=== PATIENT | female | born 1960 | race Caucasian/White ===

== ENCOUNTER 2017-02-22 11:10 | Emergency (ER) | payer OTHER ==
[2017-02-22] MEDS ORDERED: IPRATROPIUM-ALBUTEROL 3 ML NEB INHALATION STA (11:37)
--- NOTE | 2017-02-22 11:39 | ED ---
General Adult HPI - General Chief complaint: Upper Respiratory Infection Stated complaint: Cough Time Seen by Provider: 02/22/17 11:23 Source: patient, RN notes reviewed Mode of arrival: ambulatory Limitations: no limitations - History of Present Illness Initial comments: Patient is a pleasant 56-year-old female presenting to the emergency department with cough and congestion. Symptoms have been present 7 or 8 days. Symptoms seem somewhat worse today. Patient does have some back discomfort with cough only. No difficulty breathing. Patient has congestion in her chest and sinuses. Patient does have sinus pressure and right ear discomfort. Cough has been productive however patient has not looked at color of sputum. No fever. - Related Data Home Medications Medication Instructions Recorded Confirmed Levothyroxine Sodium [Synthroid] 75 mcg PO DAILY 07/17/15 02/22/17 traMADol HCl [Ultram] 50 mg PO QID PRN 07/17/15 02/22/17 Lisinopril [Zestril] 10 mg PO DAILY 11/13/16 02/22/17 guaiFENesin [Mucinex] 600 mg PO BID PRN 02/22/17 02/22/17 Previous Rx's Medication Instructions Recorded Albuterol Inhaler [Ventolin Hfa 2 puff INHALATION Q4HR PRN #1 02/22/17 Inhaler] inhaler Azithromycin [Zithromax Z-pack] 250 mg PO DIRECTED #6 tab 02/22/17 Allergies Allergy/AdvReac Type Severity Reaction Status Date / Time adhesive tape Allergy blisters Verified 02/22/17 11:26 codeine Allergy hives, SOB Verified 02/22/17 11:26 Review of Systems ROS Statement: Those systems with pertinent positive or pertinent negative responses have been documented in the HPI. ROS Other: All systems not noted in ROS Statement are negative. Constitutional: Denies: fever, chills Eyes: Denies: eye pain ENT: Denies: ear pain Respiratory: Reports: cough. Denies: dyspnea Cardiovascular: Denies: chest pain Endocrine: Denies: fatigue Gastrointestinal: Denies: abdominal pain Genitourinary: Denies: dysuria Musculoskeletal: Denies: arthralgia Skin: Denies: rash Neurological: Denies: weakness Past Medical History Past Medical History: GERD/Reflux, Hyperlipidemia, Hypertension, Thyroid Disorder Additional Past Medical History / Comment(s): migraines, burning and abdominal pain, arthritis in spine, "anti-coagulant lupus", "carrier of hepatitis C" STATES FRACTURE IN THORAX AREA History of Any Multi-Drug Resistant Organisms: None Reported Past Surgical History: Back Surgery, Cholecystectomy, Orthopedic Surgery, Tonsillectomy Additional Past Surgical History / Comment(s): cervical and lumbar surgery, plate in neck, tram-flap surgery, left knee arthroscopy, EGD, COLONOSCOPY, left carpal tunnel sugery, left arm surgery (elbow) Past Anesthesia/Blood Transfusion Reactions: No Reported Reaction Past Psychological History: No Psychological Hx Reported Smoking Status: Current every day smoker Past Alcohol Use History: None Reported Past Drug Use History: None Reported - Past Family History Mother Family Medical History: Cancer Additional Family Medical History / Comment(s): leukemia Daughter(s) Family Medical History: Cancer, Seizure Disorder Additional Family Medical History / Comment(s): breast General Exam Limitations: no limitations General appearance: alert, in no apparent distress Head exam: Present: atraumatic Eye exam: Present: normal appearance, PERRL ENT exam: Present: normal oropharynx Neck exam: Present: normal inspection Respiratory exam: Present: wheezes Cardiovascular Exam: Present: regular rate, normal rhythm Extremities exam: Present: normal inspection. Absent: pedal edema, calf tenderness Back exam: Present: normal inspection Neurological exam: Present: alert Psychiatric exam: Present: normal affect, normal mood Skin exam: Present: normal color Course Vital Signs 02/22/17 02/22/17 02/22/17 11:16 11:50 11:51 Temperature 97.9 F Pulse Rate 70 88 Respiratory 18 18 Rate Blood Pressure 164/85 O2 Sat by Pulse 96 Oximetry 02/22/17 12:00 Temperature Pulse Rate 84 Respiratory Rate Blood Pressure O2 Sat by Pulse Oximetry Medical Decision Making - Medical Decision Making Patient reexamined and feels much better following neurologic treatment. Patient updated. - Radiology Data Radiology results: image reviewed (Chest x-ray shows no acute process) Disposition Clinical Impression: Bronchitis, Sinusitis Disposition: HOME SELF-CARE Condition: Stable Instructions: Sinusitis (ED), Acute Bronchitis (ED) Additional Instructions: Please follow-up with primary care physician in the next couple of days for recheck. Return for difficulty breathing, fevers, worsening symptoms or other concerns. Prescriptions: Albuterol Inhaler [Ventolin Hfa Inhaler] 2 puff INHALATION Q4HR PRN #1 inhaler PRN Reason: Dyspnea Azithromycin [Zithromax Z-pack] 250 mg PO DIRECTED #6 tab Referrals: Felecia Curry DO [Primary Care Provider] - 1-2 days Time of Disposition: 12:38
--- NOTE | 2017-02-22 12:28 | XR ---
EXAMINATION TYPE: XR chest 2V DATE OF EXAM: 02/22/2017 COMPARISON: May 02, 2013 HISTORY: Shortness of breath TECHNIQUE: Frontal and lateral views of the chest are obtained. FINDINGS: Scattered senescent parenchymal changes noted. Hyperinflation compatible with COPD. No evidence for infiltrate. No evidence for atelectasis. Heart size is stable. Mediastinal structures are stable and grossly unremarkable. No evidence for hilar prominence. Degenerative changes dorsal spine. IMPRESSION: 1. No evidence for acute pulmonary disease.
[2017-02-22 12:57] VITALS: BP 144/67; PULSE 61; RESP 16; TEMP 98.3
== END 2017-02-22 12:56 | disposition home or self-care (01) ==
LOC: EC 11:10
DX: J40 Bronchitis, not specified as acute or chronic (principal); J32.9 Chronic sinusitis, unspecified; I10 Essential (primary) hypertension; E07.9 Disorder of thyroid, unspecified; F17.200 Nicotine dependence, unspecified, uncomplicated; Z86.19 Personal history of other infectious and parasitic diseases; Z79.899 Other long term (current) drug therapy; Z88.5 Allergy status to narcotic agent; Z91.048 Other nonmedicinal substance allergy status
CPT/HCPCS: 71020; 94640; 99283

== ENCOUNTER 2018-07-05 20:21 | Emergency (ER) | payer OTHER ==
[2018-07-05 20:33] VITALS: BP 152/83; PULSE 65; RESP 18; TEMP 98.7
[2018-07-05] MEDS ORDERED: MORPHINE SULFATE 4 MG/ML SYRINGE IM STA (20:51)
--- NOTE | 2018-07-05 21:15 | CT ---
EXAMINATION TYPE: CT brain shelia quintanilla DATE OF EXAM: 07/05/2018 COMPARISON: None HISTORY: Headache. Neck pain CT DLP: mGycm Automated exposure control for dose reduction was used. TECHNIQUE: CT scan of the head and cervical spine are performed without contrast. FINDINGS: Ventricles and sulci are within normal limits. There is no mass effect nor midline shift. There is no sign of intracranial hemorrhage. Calvarium is intact. The cervical vertebra have normal alignment. There is anterior fusion surgery from C4 to C7. Posterio r elements are intact. The skull base is intact. There is no evidence of a fracture. There is anterio r bridging osteophyte at C3-4. IMPRESSION: Previous spine surgery. No acute abnormality of the cervical spine. No fracture. Negative CT scan of the brain.
--- NOTE | 2018-07-05 21:19 | XR ---
EXAMINATION TYPE: XR Hip Bilateral and AP pelvis DATE OF EXAM: 07/05/2018 COMPARISON: NONE HISTORY: Fall. Hip pain TECHNIQUE: A single AP view of the pelvis is obtained. Two views of the right and left hip are obtain ed. FINDINGS: The pelvic ring is intact. Proximal femurs and hip joints are intact. Sacroiliac joints milton ear normal. There is no evidence of a fracture. Hip joint spaces appear normal. IMPRESSION: Negative pelvis and bilateral hip exam. No fracture.
--- NOTE | 2018-07-05 21:21 | XR ---
EXAMINATION TYPE: XR lumbar spine 2 or 3V DATE OF EXAM: 07/05/2018 COMPARISON: NONE HISTORY: Fall. Back pain TECHNIQUE: 3 views FINDINGS: Lumbar vertebra have normal alignment. Posterior elements are intact. There is disc prosthe sis at L5-S1. Sacroiliac joints are intact. There is laminectomy of L4 and L5. There is posterior fusion surgery in the lower lumbar spine at L4 L5 S1. IMPRESSION: Previous surgery. No fracture seen.
--- NOTE | 2018-07-05 21:42 | ED ---
General Adult HPI - General Chief complaint: Fall Stated complaint: Fall Back Pain Time Seen by Provider: 07/05/18 20:40 Source: patient, RN notes reviewed, old records reviewed Mode of arrival: EMS Limitations: no limitations - History of Present Illness Initial comments: 58-year-old female patient with no pertinent past medical history presents to ED after sustaining a fall at home. Patient reports that she was standing on a porch when she took a step forward and slipped and fell down approximately 4 steps. Patient fell backwards landing on her gluteus region as well as hitting the back of her head on the handrail. Patient denies any loss of consciousness. This fall occurred approximately 5 hours prior to presentation to ER. Patient denies any use of blood thinners. Patient denies any headache, change in vision, pain in neck. Patient primary complaint is low back pain, and right hip pain. Patient is ambulatory without difficulty. Patient denies any loss of bowel or bladder control, saddle anesthesia, new onset lower extremity weakness, IV drug use, fevers or chills. Denies other complaints. Systemic: Pt denies fatigue, myalgia, fever/chills, rash. Pt denies weakness, night sweats, weight loss. Neuro: Pt denies headache, visual disturbances, syncope or pre-syncope. HEENT: Pt denies ocular discharge or irritation, otalgia, rhinorrhea, pharyngitis or notable lymphadenopathy. Cardiopulmonary: Pt denies chest pain, SOB, heart palpitations, dyspnea on exertion. Abdominal/GI: Pt denies abdominal pain, n/v/d. : Pt denies dysuria, burning w/ urination, frequency/urgency. Denies new onset urinary or bowel incontinence. MSK: Pt denies myalgia, loss of strength or function in extremities. Neuro: Pt denies new onset weakness, paresthesias. - Related Data Home Medications Medication Instructions Recorded Confirmed Levothyroxine Sodium [Synthroid] 75 mcg PO DAILY 07/17/15 02/22/17 traMADol HCl [Ultram] 50 mg PO QID PRN 07/17/15 02/22/17 Lisinopril [Zestril] 10 mg PO DAILY 11/13/16 02/22/17 guaiFENesin [Mucinex] 600 mg PO BID PRN 11/26/17 11/26/17 Previous Rx's Medication Instructions Recorded Albuterol Inhaler [Ventolin Hfa 2 puff INHALATION Q4HR PRN #1 02/22/17 Inhaler] inhaler Azithromycin [Zithromax Z-pack] 250 mg PO DIRECTED #6 tab 02/22/17 predniSONE 50 mg PO DAILY #5 tab 07/05/18 Allergies Allergy/AdvReac Type Severity Reaction Status Date / Time adhesive tape Allergy blisters Verified 07/05/18 20:33 codeine Allergy hives, SOB Verified 07/05/18 20:33 Review of Systems ROS Statement: Those systems with pertinent positive or pertinent negative responses have been documented in the HPI. ROS Other: All systems not noted in ROS Statement are negative. Past Medical History Past Medical History: GERD/Reflux, Hyperlipidemia, Hypertension, Thyroid Disorder Additional Past Medical History / Comment(s): migraines, burning and abdominal pain, arthritis in spine, "anti-coagulant lupus", "carrier of hepatitis C" STATES FRACTURE IN THORAX AREA History of Any Multi-Drug Resistant Organisms: None Reported Past Surgical History: Back Surgery, Cholecystectomy, Orthopedic Surgery, Tonsillectomy Additional Past Surgical History / Comment(s): cervical and lumbar surgery, plate in neck, tram-flap surgery, left knee arthroscopy, EGD, COLONOSCOPY, left carpal tunnel sugery, left arm surgery (elbow) Past Anesthesia/Blood Transfusion Reactions: No Reported Reaction Past Psychological History: No Psychological Hx Reported Smoking Status: Current every day smoker Past Alcohol Use History: None Reported Past Drug Use History: None Reported - Past Family History Mother Family Medical History: Cancer Additional Family Medical History / Comment(s): leukemia Daughter(s) Family Medical History: Cancer, Seizure Disorder Additional Family Medical History / Comment(s): breast General Exam - General Exam Comments Initial Comments: Constitutional: NAD, AOX3, Pt has pleasant affect. HEENT: NC/AT, trachea midline, neck supple, no lymphadenopathy. Posterior pharynx non erythematous, without exudates. External ears appear normal, without discharge. Mucous membranes moist. Eyes PERRLA, EOM intact. There is no scleral icterus. No pallor noted. Cardiopulmonary: RRR, no murmurs, rubs or gallops, no JVD noted. Lungs CTAB in anterior and posterior duran. No peripheral edema. Abdominal exam: Abdomen soft and non-distended. Abdomen non-tender to palpation in all 4 quadrants. Bowel sounds active in LLQ. No hepatosplenomegaly. No ecchymosis Neuro: CN II-XII intact. No nuchal rigidity. No cervical spinal tenderness. MSK: 5 out of 5 strength quadriceps and psoas muscles. Mild amount of midline lumbar tenderness. No cervical thoracic lumbar tenderness. Ambulatory without difficulty. Heel to toe walking intact. Distal pulses intact and equal. No posterior calf tenderness bilaterally, homans sign negative bilaterally. Posterior tibialis and radial pulse +2 bilaterally. Sensation intact in upper and lower extremities. Full active ROM in upper and lower extremities, 5/5 stregnth. Limitations: no limitations Course Vital Signs 07/05/18 20:30 Temperature 98.7 F Pulse Rate 65 Respiratory 18 Rate Blood Pressure 152/83 O2 Sat by Pulse 99 Oximetry Medical Decision Making - Medical Decision Making 58-year-old female patient with no pertinent past medical history presents to ED after sustaining a fall at home. Patient reports that she was standing on a porch when she took a step forward and slipped and fell down approximately 4 steps. Patient fell backwards landing on her gluteus region as well as hitting the back of her head on the handrail. Patient denies any loss of consciousness. This fall occurred approximately 5 hours prior to presentation to ER. Patient denies any use of blood thinners. Patient denies any headache, change in vision, pain in neck. Patient primary complaint is low back pain, and right hip pain. Patient is ambulatory without difficulty. Patient denies any loss of bowel or bladder control, saddle anesthesia, new onset lower extremity weakness, IV drug use, fevers or chills. Denies other complaints. Patient will signs stable, afebrile. Physical exam displayed: CN II-XII intact. No nuchal rigidity. No cervical spinal tenderness. 5 out of 5 strength quadriceps and psoas muscles. Mild amount of midline lumbar tenderness. No cervical thoracic lumbar tenderness. Ambulatory without difficulty. Heel to toe walking intact. Distal pulses intact and equal. Plain film of lumbar spine displayed previous surgery, no fracture seen. Plain film of his bilaterally at the pelvis displayed negative pelvis and bilateral hip exam, no fracture. Noncontrast CT of brain and cervical spine displayed previous spine surgery, negative CT of brain. Disposition Clinical Impression: Fall, Lumbar back sprain Disposition: HOME SELF-CARE Condition: Stable Instructions (If sedation given, give patient instructions): Fall Prevention for Older Adults (ED), Low Back Strain (ED) Additional Instructions: Patient to adhere to previously discussed treatment plan and will take medication(s) as directed. Patient to follow up with PCP in 1-2 days. Patient to return to ED if symptoms do not improve. Please take medication as prescribed. Please follow-up with primary care provider in 1-2 days. Please return to ER if condition worsens in any way. Prescriptions: predniSONE 50 mg PO DAILY #5 tab Is patient prescribed a controlled substance at d/c from ED?: No Referrals: Felecia Curry DO [Primary Care Provider] - 1-2 days
== END 2018-07-05 22:25 | disposition home or self-care (01) ==
LOC: EC 20:21
DX: S33.5XXA Sprain of ligaments of lumbar spine, initial encounter (principal); M25.551 Pain in right hip; I10 Essential (primary) hypertension; E07.9 Disorder of thyroid, unspecified; F17.200 Nicotine dependence, unspecified, uncomplicated; Z98.890 Other specified postprocedural states; Z88.5 Allergy status to narcotic agent; Z91.048 Other nonmedicinal substance allergy status; Z79.890 Hormone replacement therapy; Z79.899 Other long term (current) drug therapy; W10.9XXA Fall (on) (from) unspecified stairs and steps, initial encounter; Y92.008 Other place in unspecified non-institutional (private) residence as the place of occurrence of the external cause
CPT/HCPCS: 99284; 96372; 72100; 73521; 72125; 70450; J2270

== ENCOUNTER → 2019-08-16 | Outpatient (CLI) | payer OTHER ==
--- NOTE | 2019-08-16 09:37 | MR ---
EXAMINATION TYPE: MR brain wo/w con DATE OF EXAM: 08/16/2019 COMPARISON: Outside head CT August 01, [address] performed at this institute on July 05, 2018 HISTORY: Fall 1.5 Years ago with head Injury. Recent CT at [facility] showed bump on Left side of her head. Prior abnormal outside CT. TECHNIQUE: Multiplanar, multisequence images of the brain and brainstem is performed without and with IV contras t, utilizing 10 mL intravenous Gadavist . FINDINGS: Exam slightly suboptimal as there is artifact degradation on outside images sensitive to th is PACS. Diffusion weighted images demonstrate no evidence of a recent infarct or other diffusion abn ormality. There is no worrisome extra-axial fluid collection. Mild ventricular and sulcal prominence greatest over bilateral frontal lobes redemonstrated. Scattered foci of T2 hyperintensity are noted throughout the white matter bilaterally. I identified roughly 15-20 scattered lesions with largest le samantha measuring 1.9 cm long axis level of the left frontal lobe jim radiata axial image 17 and sanna tional high posterior right frontal lesion measuring 1.2 cm long axis sagittal image 14. No suspiciou s lesions at area of concern right posterior fossa on CT, some punctate artifact is present in the bi lateral cerebellar hemispheres. T2 Star weighted images show no suspicious intraparenchymal blood pro duct. Midline structures demonstrate normal morphology. The craniocervical junction appears within normal limits. Post contrast images demonstrate no abnormal enhancement. The dural venous sinuses appear pa tent. Artifact distortion at level of the globes is noted involving paranasal sinuses which are predo minantly clear. There is patchy opacification right mastoid air cells redemonstrated this was present back in 2019 CT also. Retained fluid suspected. IMPRESSION: Mild diffuse bilateral frontal lobe atrophy with [id number] nonspecific white matte r changes somewhat atypical for product of chronic small vessel ischemic change. Demyelinating diseas e and other etiologies (infectious and/or metabolic and (need to be considered. No suspicious enhance ment noted. No significant finding right posterior fossa or cerebellar hemisphere at area of CT mattie rn.
== END | disposition home or self-care (01) ==
LOC: RADMRIMAIN 08:20
PROVIDERS: ATTEND Family Medicine
DX: G31.89 Other specified degenerative diseases of nervous system (principal); R90.89 Other abnormal findings on diagnostic imaging of central nervous system; G37.9 Demyelinating disease of central nervous system, unspecified
CPT/HCPCS: 70553; A9585

== ENCOUNTER → 2020-07-06 | Outpatient (CLI) | payer OTHER | END | disposition home or self-care (01) | LOC: LABWHC1 11:45 | PROVIDERS: ATTEND Orthopaedic Surgery | DX: Z01.812 Encounter for preprocedural laboratory examination (principal); M16.12 Unilateral primary osteoarthritis, left hip | CPT/HCPCS: 36415; 86850; 86900; 86901; 87070 ==

== ENCOUNTER 2020-07-16 05:58 | Day surgery (SDC) | payer OTHER ==
--- NOTE | 2020-07-15 12:19 | HP ---
HISTORY AND PHYSICAL REASON FOR ADMISSION: Surgery scheduled 07/16/2020 HISTORY OF PRESENT ILLNESS: Annelise Leger is a 60-year-old patient seen with symptomatic left hip osteoarthritis. We discussed options for treatment. She elected to proceed with left total hip arthroplasty. Consent obtained. Medical clearance was provided by Dr. Curry's office. PAST MEDICAL HISTORY: Hypertension hypothyroidism. PAST SURGICAL HISTORY: Lumbar spine fusion. MEDICATIONS: Levothyroxine, lisinopril, tramadol. ALLERGIES: None reported. SOCIAL HISTORY: She denies tobacco use. PHYSICAL EXAMINATION: Evaluation of the left hip, there is limited range of motion, severe pain, diffuse tenderness about the hip girdle. Positive hip impingement sign. Straight leg raise negative. Distal neurovascular exam is intact. RADIOGRAPHS: Left hip radiographs reveal severe osteoarthritic changes. IMPRESSION: 1. Left hip osteoarthritis. 2. Hypertension. 3. Hypothyroidism. PLAN: Direct anterior left total hip arthroplasty. Surgery is 07/16/2020. MMODL / IJN: [id number] /
[~2020-07-16 05:58] MED LIST: ACETAMINOPHEN TAB 500 MG TAB PO PRN; LACTATED RINGERS 1,000 ML IV SCH; LIDOCAINE 1% (10MG/ML) FOR IV START INTRADERMA PRN; MELOXICAM 7.5 MG TAB PO PRN; MIDAZOLAM 2 MG/2 ML VIAL IV PRN; Pre Op ABX Message 1 EACH MISC MISCELLANE ONE; ROPIVACAINE/EPI/CLONIDINE/KET 50 ML SYRINGE MISCELLANE PRN; TRANEXAMIC ACID 1,000 MG in SODIUM CHLORIDE 0.9% 100 ML IVPB PRN
[2020-07-16] MEDS ORDERED: ONDANSETRON 4 MG/2 ML VIAL ONE (06:35)
[2020-07-16] MEDS ORDERED: HYDROmorphone 0.5 MG/0.5 ML SYRINGE IVP PRN ×2 (07:00→09:34)
[2020-07-16] MEDS ORDERED: DEXAMETHASONE SOD PHOSPHATE 4 MG/ML 1 ML VIAL IVP ONE (07:03)
[2020-07-16] MEDS ORDERED: PROPOFOL 10 MG/ML 20 ML VIAL IV ONE (07:24)
[2020-07-16] MEDS ORDERED: MIDAZOLAM 2 MG/2 ML VIAL ONE (07:24)
[2020-07-16] MEDS ORDERED: TRANEXAMIC ACID 1,000 MG/10 ML VIAL ONE (07:24)
[2020-07-16] MEDS ORDERED: ROCURONIUM 10 MG/ML (5 ML VIAL) IV ONE (07:24)
[2020-07-16] MEDS ORDERED: fentaNYL (PF) 50 MCG/ML 2 ML AMP ONE (07:24)
[2020-07-16] MEDS ORDERED: LIDOCAINE 1% INJ 10MG/ML (20 ML MDV) ONE (07:24)
[2020-07-16] MEDS ORDERED: GLYCOPYRROLATE 0.2 MG/ML 2 ML VIAL ONE (07:24)
[2020-07-16] MEDS ORDERED: SUCCINYLCHOLINE CHLORIDE 100 MG/5 ML SYR IV ONE (07:24)
[2020-07-16] MEDS ORDERED: NEOSTIGMINE 1 MG/ML 10 ML VIAL ONE (07:24)
[2020-07-16] MEDS ORDERED: SODIUM CHLORIDE 0.9% 100 ML BAG ONE (07:24)
[2020-07-16] MEDS ORDERED: ceFAZolin 1,000 MG in SODIUM CHLORIDE 0.9% 1,000 ML IRRIGATION ONE (08:02)
--- NOTE | 2020-07-16 09:14 | XR ---
Limited left hip and fluoroscopy support HISTORY: Anterior hip replacement 2 intraoperative C-arm images document the procedure. 7 seconds fluoroscopy supplied to the referring clinician.
[2020-07-16] MEDS ORDERED: HYDROcodone/APAP 5-325MG 1 EACH TAB PO PRN ×2 (09:34)
[2020-07-16] MEDS ORDERED: NALOXONE 0.4 MG/ML 1 ML VIAL IV PRN (09:34)
[2020-07-16] MEDS ORDERED: HYDROmorphone 1 MG/ML 1 ML SYRINGE IVP PRN (09:34)
[2020-07-16] MEDS ORDERED: ONDANSETRON 4 MG/2 ML VIAL IVP PRN (09:34)
[2020-07-16] MEDS ORDERED: HYDROmorphone 0.2 MG/1 ML SYRINGE IVP PRN (09:34)
[2020-07-16] MEDS ORDERED: LACTATED RINGERS 1,000 ML IV ONE (09:34)
--- NOTE | 2020-07-16 09:34 | P.OP ---
Date of Procedure: 07/16/20 Preoperative Diagnosis: Left hip osteoarthritis Postoperative Diagnosis: Left hip osteoarthritis Procedure(s) Performed: Direct anterior left total hip arthroplasty Implants: 1. Depuy Corail KA size 13 standard collar press-fit femoral stem 2. Depuy pinnacle 54 mm press-fit acetabular shell 3. Depuy pinnacle neutral polyethylene acetabular liner 36 mm ID 54 mm OD 4. Biolox delta ceramic femoral head +1.5 36 mm Anesthesia: MILANA, local Surgeon: Connor Marquez Skin Diving Teacher #1: Norm Boothe Estimated Blood Loss (ml): 200 Pathology: other (Femoral head) Condition: stable Disposition: PACU Indications for Procedure: 60-year-old patient seen with symptomatic left hip osteoarthritis. After treatment options were discussed, she elected to proceed with total hip arthroplasty. Operative Findings: See description of procedure Description of Procedure: The patient was taken to the operative suite. Patient underwent a general anesthetic by the department of anesthesia. Patient was then transferred to the [place] table. Patient was given preoperative IV antibiotics and TXA. Both lower extremities were placed in standard leg spars. The hip was then prepped and draped in the normal sterile orthopedic fashion. A standard anterior incision was made beginning 3 cm lateral and 1 cm distal to the ASIS extending 10 cm. Dissection was then carried down through the subcutaneous soft tissues down to the fascia overlying the tensor fascia brianna. An incision was now made through the fascia. Careful dissection was taken down exposing the tensor fascia brianna muscle. A Cobra retractor was now placed along the medial femoral neck and a second one along the lateral femoral neck. The venous circumflex vessels were now identified, cauterized and clipped. We identified the anterior hip capsule. An incision was made through the hip capsule along the lateral border. I performed a partial anterior capsulectomy. Retractors were now placed around the femoral neck itself. A femoral neck cut was now made with a sagittal saw. It was completed with an osteotome at the lateral neck area. The femoral head was now removed without difficulty. The extremity was now rotated to 60 of external rotation. It was locked in position. Residual labrum was now debrided out. Serial reaming was performed of the acetabulum while Norm AGUDELO assisted holding an anterior retractor for exposure. Once we reached the appropriate size and a trial was position and fit nicely. The appropriate size was now chosen opened and made available. It was introduced into the acetabulum without difficulty. The C-arm/fluoroscopy was now brought into the operative field. We made sure we had a true AP pelvic view. We now under direct C- arm/fluoroscopy introduced into the acetabular component with appropriate version and inclination. I held the cup in appropriate position well Norm AGUDELO used a mallet to seat the acetabular component. I noted the component now to be well seated and stable. Acetabular cup introduce her was removed. The C-arm was pulled back. An appropriate liner was introduced and clicked into position. It was felt to be stable. At this point retractors were removed. The extremity was now placed into 120 external rotation with no traction. The leg was now dropped to the ground and adducted. Appropriate retractors were now positioned along the proximal femur. We also placed our femoral look into position. Additional capsular releasing was performed to gain access to the proximal femur. We now used a box osteotome. A canal finder was now utilized. Serial broaching was now performed with the assistance of Norm AGUDELO tapping the broaches down with a mallet while held the broach in appropriate rotation and position. This was done until we reached the appropriate size with good overall rotational stability. Appropriate calcar planing was performed. A trial head/neck was placed into position. The hip was now reduced. The C- arm/fluoroscopy was brought back into the operative field. I obtained an AP pelvis demonstrating adequate leg length alignment as well as adequate trial component positioning. The C-arm/fluoroscopy was pulled back. Retractors were repositioned and the hip was dislocated. The leg was again taken down to the ground and adducted. Appropriate retractors were repositioned as well as the femoral hook. All trial components were removed. The femoral implant was opened along with the femoral head. The femoral implant was introduced on the appropriate handle into our pre-broached area. I held the component position well Norm AGUDELO used a mallet to seat the femoral component. The femoral component was now noted to be well seated and stable.. The femoral head was introduced with good positioning and fixation noted. Retractors were now removed. The hip was now reduced. There appeared be good positioning of the hip confirmed on intraoperative fluoroscopy. Spot films were obtained to document this. A second gram of TXA was given. The deep and superficial soft tissues were infiltrated with local analgesic. Bipolar cautery had been utilized intermittently through the procedure for hemostasis. The wound was irrigated copiously with pulse lavage mechanical irrigation. The fascia was repaired with Vicryl suture. The subcutaneous soft tissues were repaired in layers with Vicryl suture. The skin was approximated with pernio/Dermabond. Sterile dressings were applied. Patient was then awakened, transferred to a bed and taken to recovery in stable condition. Norm AGUDELO assisted with the complex procedure.
[2020-07-16] MEDS ORDERED: diphenhydrAMINE 50 MG/ML 1 ML VIAL IVP ONE (09:42)
[2020-07-16] MEDS ORDERED: KETOROLAC 15 MG/ML 1 ML VIAL IVP ONE (09:43)
[2020-07-16 09:47] VITALS: TEMP 96.4
[2020-07-16] MEDS: MEPERIDINE 50 MG/ML SYRINGE IVP ONE ×2 (09:53→10:04)
[2020-07-16] MEDS ORDERED: traMADol 50 MG TAB ONE (11:35)
[2020-07-16] MEDS ORDERED: traMADol 50 MG TAB PO ONE (11:37)
[2020-07-16 13:17] VITALS: BP 133/86; PULSE 89; RESP 16
--- NOTE | 2020-07-16 13:18 | XR ---
EXAMINATION TYPE: XR Hip LT and AP Pelvis DATE OF EXAM: 07/16/2020 COMPARISON: Plain film 06/06/2020 HISTORY: Status post left hip arthroplasty TECHNIQUE: A single AP view of the pelvis is obtained. Two views of the left hip are obtained. FINDINGS: There is no acute fracture/dislocation evident in the pelvis. The hip and sacroiliac join ts appear symmetric and unremarkable. The overlying soft tissue appears unremarkable. Patient is sta tus post left hip arthroplasty. There are overlying myrtle. Lucency is present in the soft tissues. Intervertebral spacing block, laminectomy change, paraspinal graft material noted status post lumbar fusion. Surgical clips are present in the pelvis. Two views of left hip show no acute fracture or dislocation. No focal lytic or sclerotic lesion seen in the proximal left femur. The overlying soft tissue is unremarkable. IMPRESSION: There is no acute fracture or dislocation in the pelvis or left hip.
== END 2020-07-16 15:45 | disposition home health service (06) ==
LOC: OR 05:58
PROVIDERS: ATTEND Orthopaedic Surgery
DX: M16.12 Unilateral primary osteoarthritis, left hip (principal); I10 Essential (primary) hypertension; E03.9 Hypothyroidism, unspecified; Z98.1 Arthrodesis status; F17.210 Nicotine dependence, cigarettes, uncomplicated; Z98.890 Other specified postprocedural states; Z97.2 Presence of dental prosthetic device (complete) (partial); Z79.890 Hormone replacement therapy; Z79.891 Long term (current) use of opiate analgesic; Z79.899 Other long term (current) drug therapy; Z88.5 Allergy status to narcotic agent; Z91.09 Other allergy status, other than to drugs and biological substances
CPT/HCPCS: 97110; 97161; 88300; 73501; 73502; 27130; C1776; J2250; J1200; J1100; J2710; J2175; J0690 ×2; J2405; J2001; J3010; J1885; J0330; J2704; 36415; 86850; 86900; 86901

== ENCOUNTER 2020-08-16 13:53 | Day surgery (SDC) | payer OTHER ==
--- NOTE | 2020-08-15 16:51 | HP ---
HISTORY AND PHYSICAL DATE OF SURGERY: 08/16/2020 Annelise Leger is a 60-year-old patient seen with a persistent anterior left hip wound with history of previously having undergone direct anterior total hip arthroplasty. We discussed options. I recommended revision of her wound closure. I discussed the procedure, risks, complications, benefits and recovery. She was agreeable. Consent was obtained. PAST MEDICAL HISTORY: Hypertension, hyperlipidemia, hypothyroidism. PAST SURGICAL HISTORY: Direct anterior left total hip arthroplasty. DAILY MEDICATIONS: Levothyroxine, lisinopril, tramadol. ALLERGIES: CODEINE. SOCIAL HISTORY: She denies tobacco use. PHYSICAL EVALUATION OF THE LEFT HIP: There is an open wound along the midline area of the incision. The open area measures 3 x 2 cm. There is no obvious evidence for drainage. There is painless rotation of her hip. Her distal neurovascular exam is intact. RADIOGRAPHS: Previous radiographs of her left hip revealed a stable-appearing total hip arthroplasty. IMPRESSION: 1. Left hip wound with history of previous direct anterior left total hip arthroplasty. 2. Hypertension. 3. Hyperlipidemia. 4. Hypothyroidism. PLAN: Revision left hip wound with secondary closure. MMODL / IJN: [id number] /
[2020-08-16] MEDS ORDERED: LACTATED RINGERS 1,000 ML IV ONE ×2 (15:25→17:35)
[2020-08-16] MEDS ORDERED: ONDANSETRON 4 MG/2 ML VIAL ONE (16:17)
[2020-08-16] MEDS ORDERED: DEXAMETHASONE SOD PHOSPHATE 4 MG/ML 1 ML VIAL IVP ONE (16:19)
[2020-08-16] MEDS ORDERED: ONDANSETRON 4 MG/2 ML VIAL IVP ONE (16:19)
[2020-08-16] MEDS ORDERED: MIDAZOLAM 2 MG/2 ML VIAL IVP ONE (16:20)
[2020-08-16] MEDS ORDERED: MIDAZOLAM 2 MG/2 ML VIAL ONE (16:50)
[2020-08-16] MEDS ORDERED: SUCCINYLCHOLINE CHLORIDE 100 MG/5 ML SYR IV ONE (16:50)
[2020-08-16] MEDS ORDERED: ePHEDrine SULFATE/0.9% NACL/PF 50 MG/5 ML SYRINGE IV ONE (16:50)
[2020-08-16] MEDS ORDERED: fentaNYL (PF) 50 MCG/ML 2 ML AMP ONE (16:50)
[2020-08-16] MEDS ORDERED: LIDOCAINE 1% INJ 10MG/ML (20 ML MDV) ONE (16:50)
[2020-08-16] MEDS ORDERED: PROPOFOL 10 MG/ML 20 ML VIAL IV ONE (16:50)
[2020-08-16] MEDS ORDERED: BUPIVACAINE (PF) 0.25% 30 ML VIAL SQ ONE ×3 (17:17→17:34)
--- NOTE | 2020-08-16 17:33 | P.OP ---
Date of Procedure: 08/16/20 Preoperative Diagnosis: Left hip incisional dehiscence Postoperative Diagnosis: Same Procedure(s) Performed: Secondary closure left hip incisional/wound dehiscence Anesthesia: KASEY, local Surgeon: Connor Marquez Cable Tv Installer #1: Jeffry Shirley Estimated Blood Loss (ml): 3 Pathology: none sent Condition: stable Disposition: PACU Indications for Procedure: 60 oh patient appears undergone direct anterior left total hip arthroplasty. She was seen with an incisional/wound dehiscence in the midportion of her incision. I recommended secondary closure. She was agreeable. Consent was obtained. Operative Findings: See description of procedure Description of Procedure: The patient was taken to the operative suite. Patient received preoperative IV antibiotics. The patient underwent a general anesthetic by the department of anesthesia. The anterior left hip was now prepped and draped in the normal sterile orthopedic fashion. There was a 1. 52 centimeter wound dehiscence involving the central portion of the incision. I now using a sharp knife cleaned out the margins getting down to good bleeding tissue. Wound was irrigated copiously with irresept irrigation. The skin margins were now repaired utilizing 2-0 nylon with multiple simple interrupted sutures approximating incision nicely. Sterile dressings were applied. The patient was awakened and then transferred to recovery having tolerated procedure well.
[2020-08-16 17:49] VITALS: TEMP 97.5
[2020-08-16 17:58] VITALS: RESP 16
[2020-08-16 18:31] VITALS: BP 113/64; PULSE 78
== END 2020-08-16 18:42 | disposition home or self-care (01) ==
LOC: OR 13:53
PROVIDERS: ATTEND Orthopaedic Surgery
DX: T81.31XA Disruption of external operation (surgical) wound, not elsewhere classified, initial encounter (principal); Y83.8 Other surgical procedures as the cause of abnormal reaction of the patient, or of later complication, without mention of misadventure at the time of the procedure; I10 Essential (primary) hypertension; E78.5 Hyperlipidemia, unspecified; F17.210 Nicotine dependence, cigarettes, uncomplicated; E03.9 Hypothyroidism, unspecified; Z79.899 Other long term (current) drug therapy; Z88.5 Allergy status to narcotic agent; Z96.642 Presence of left artificial hip joint
CPT/HCPCS: 12020; J2250; J1100; J0690; J2405; J2001; J3010; J0330; J2704

== ENCOUNTER 2023-04-14 19:09 | Emergency (ER) | payer OTHER ==
[2023-04-14 19:54] LABS: Basophils % (A) 1 %; Eosinophils # (A) 0.1 k/uL (0-0.7); Eosinophils % (A) 1 %; HCT 39.5 % (34.0-46.0); HGB 13.5 gm/dL (11.4-16.0); Lymphocytes # (A) 2.1 k/uL (1.0-4.8); Lymphocytes % (A) 34 %; MCH 31.7 pg (25.0-35.0); MCHC 34.3 g/dL (31.0-37.0); MCV 92.4 fL (80.0-100.0); Mean Platelet Volume 9.6; Monocytes # (A) 0.3 k/uL (0-1.0); Monocytes % (A) 5 %; Neutrophils # (A) 3.6 k/uL (1.3-7.7); Neutrophils % (A) 56 %; Platelet Count 107 k/uL (150-450); RBC 4.27 m/uL (3.80-5.40); RDW 12.8 % (11.5-15.5); WBC 6.3 k/uL (3.8-10.6)
[2023-04-14 20:03] LABS: ALT 14 U/L (4-34); AST 27 U/L (14-36); African American GFR (CKD) 77 (>60 ml/min/1.73 sqM); Alkaline Phosphatase 97 U/L (38-126); Anion Gap 5 mmol/L; Blood Urea Nitrogen 18 mg/dL (7-17); Calcium 9.3 mg/dL (8.4-10.2); Carbon Dioxide 26 mmol/L (22-30); Chloride 104 mmol/L (98-107); Glucose 105 mg/dL (74-99); Non-African American GFR(CKD) 67 (>60 ml/min/1.73 sqM); Potassium 3.8 mmol/L (3.5-5.1); Sodium 135 mmol/L (137-145); Total Bilirubin 0.4 mg/dL (0.2-1.3); Total Protein 7.4 g/dL (6.3-8.2)
--- NOTE | 2023-04-14 20:04 | ED ---
General Adult HPI - General Source: patient, EMS, RN notes reviewed, old records reviewed Mode of arrival: EMS <Jai Mendez - Last Filed: 04/14/23 20:57> <Brian Laureano - Last Filed: 04/15/23 01:54> - General Chief complaint: Fall Stated complaint: Fall Time Seen by Provider: 04/14/23 19:23 - History of Present Illness Initial comments: This is a 62-year-old female who presents emergency department stating she was going up the stairs and she was vacuuming fell forward and hit her medicines and will down to the bottom of steps. Patient complains of some lower back pain and pain on the top for head pain patient denies being days or losing consciousness. Patient states she has a little bit of left-sided neck pain. Patient denies any numbness or weakness. Patient denies any chest pain patient denies abdominal pain patient denies any extremity pain except a little soreness on her left hip but she has full range of motion of her hip (Jai Mendez) - Related Data Home Medications Medication Instructions Recorded Confirmed Levothyroxine Sodium [Synthroid] 75 mcg PO DAILY 07/17/15 04/14/23 traMADol HCl [Ultram] 100 mg PO QID 07/17/15 04/14/23 Amitriptyline HCl [Elavil] 10 mg PO HS 04/14/23 04/14/23 Meloxicam [Mobic] 7.5 mg PO BID 04/14/23 04/14/23 Upadacitinib [Rinvoq] 15 mg PO DAILY 04/14/23 04/14/23 Previous Rx's Medication Instructions Recorded Meclizine [Antivert] 25 mg PO TID PRN #15 tab 04/15/23 Allergies Allergy/AdvReac Type Severity Reaction Status Date / Time adhesive tape Allergy blisters Verified 04/14/23 22:31 codeine Allergy hives, SOB Verified 04/14/23 22:31 hydrocodone [From [place]] Allergy Rash/Hives Verified 04/14/23 22:31 Review of Systems ROS Other: All systems not noted in ROS Statement are negative. <Jai Mendez - Last Filed: 04/14/23 20:57> ROS Other: All systems not noted in ROS Statement are negative. <Brian Laureano - Last Filed: 04/15/23 01:54> ROS Statement: Those systems with pertinent positive or pertinent negative responses have been documented in the HPI. 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" STATES FRACTURE IN THORAX AREA History of Any Multi-Drug Resistant Organisms: None Reported Past Surgical History: Back Surgery, Breast Surgery, Cholecystectomy, Orthopedic Surgery, Tonsillectomy Additional Past Surgical History / Comment(s): cervical and lumbar surgery, plate in neck, tram-flap surgery, left knee arthroscopy, EGD, COLONOSCOPY, left carpal tunnel sugery, left arm surgery (elbow) Past Anesthesia/Blood Transfusion Reactions: No Reported Reaction Past Psychological History: No Psychological Hx Reported Smoking Status: Current every day smoker Past Alcohol Use History: None Reported Past Drug Use History: None Reported - Past Family History Mother Family Medical History: Cancer Additional Family Medical History / Comment(s): leukemia Daughter(s) Family Medical History: Cancer, Seizure Disorder Additional Family Medical History / Comment(s): breast <Jai Mendez - Last Filed: 04/14/23 20:57> General Exam <Jai Mendez - Last Filed: 04/14/23 20:57> - General Exam Comments Initial Comments: GENERAL: Patient is well-developed and well-nourished. Patient is nontoxic and well- hydrated and is in mild distress. ENT: Neck is soft and supple. No significant lymphadenopathy is noted. Oropharynx is clear. Moist mucous membranes. Neck has full range of motion without eliciting any pain. EYES: The sclera were anicteric and conjunctiva were pink and moist. Extraocular movements were intact and pupils were equal round and reactive to light. Eyelids were unremarkable. PULMONARY: Unlabored respirations. Good breath sounds bilaterally. No audible rales rhonchi or wheezing was noted. CARDIOVASCULAR: There is a regular rate and rhythm without any murmurs gallops or rubs. ABDOMEN: Soft and nontender with normal bowel sounds. No palpable organomegaly was noted. There is no palpable pulsatile mass. SKIN: Superficial abrasion on the patient's right knee and right brandt. NEUROLOGIC: Patient is alert and oriented x3. Cranial nerves II through XII are grossly intact. Motor and sensory are also intact. Normal speech, volume and content. Symmetrical smile. MUSCULOSKELETAL: Normal extremities with adequate strength and full range of motion. Left lateral hip pain on palpation but full range of motion LYMPHATICS: No significant lymphadenopathy is noted PSYCHIATRIC: Normal psychiatric evaluation. (Jai Mendez) Course Vital Signs 04/14/23 04/14/23 04/15/23 19:15 22:47 01:00 Pulse Rate 73 77 67 Respiratory 16 16 18 Rate Blood Pressure 164/71 158/78 139/100 O2 Sat by Pulse 96 97 Oximetry Medical Decision Making - Lab Data Result diagrams: 04/14/23 19:50 04/14/23 19:50 <Jai Mendez - Last Filed: 04/14/23 20:57> - Lab Data Result diagrams: 04/14/23 19:50 04/14/23 19:50 <Brian Laureano - Last Filed: 04/15/23 01:54> - Medical Decision Making Was pt. sent in by a medical professional or institution (, PA, RAIL OPERATIONS CONTROLLER, urgent care, hospital, or [place] health care facility...) When possible be specific @ -[No] Did you speak to anyone other than the patient for history (EMS, parent, family, police, friend...)? What history was obtained from this source @ -[No] Did you review nursing and triage notes (agree or disagree)? Why? @ -[I reviewed and agree with nursing and triage notes] Were old charts reviewed (outside hosp., previous admission, EMS record, old EKG, old radiological studies, urgent care reports/EKG's, [place] health care facility records)? Report findings @ -[No old charts were reviewed] Differential Diagnosis (chest pain, altered mental status, abdominal pain women, abdominal pain men, vaginal bleeding, weakness, fever, dyspnea, syncope, he adache, dizziness, GI bleed, back pain, seizure, CVA, palpatations, mental health, musculoskeletal)? @ -Skull fracture, subdural, subarachnoid, intraparenchymal hemorrhage, lumbos acral fracture cervical spine fracture, this is not an all inclusive list EKG interpreted by me (3pts min.). @ -[As above] X-rays interpreted by me (1pt min.). @ -[None done] CT interpreted by me (1pt min.). @ -[None done] U/S interpreted by me (1pt. min.). @ -[None done] What testing was considered but not performed or refused? (CT, X-rays, U/S, labs)? Why? @ -[None] What meds were considered but not given or refused? Why? @ -[None] Did you discuss the management of the patient with other professionals (professionals i.e. , PA, RAIL OPERATIONS CONTROLLER, lab, RT, psych nurse, social science professor, lockstitch machine operator, teacher, protection officer, ed case manager)? Give summary @ -[No] Was smoking cessation discussed for >3mins.? @ -[No] Was critical care preformed (if so, how long)? @ -[No] Were there social determinants of health that impacted care today? How? (Homelessness, low income, unemployed, alcoholism, drug addiction, transportation, low edu. Level, literacy, decrease access to med. care, [facility], rehab)? @ -[No] Was there de-escalation of care discussed even if they declined (Discuss DNR or withdrawal of care, Hospice)? DNR status @ -[No] What co-morbidities impacted this encounter? (DM, HTN, Smoking, COPD, CAD, Cancer, CVA, ARF, Chemo, Hep., AIDS, mental health diagnosis, sleep apnea, morbid obesity)? @ -[None] Was patient admitted / discharged? Hospital course, mention meds given and route, prescriptions, significant lab abnormalities, going to OR and other pertinent info. @ -Dr. Dr. Jimenez will be taking over the care of this patient at 9 PM (Jai Mendez) - Lab Data Lab Results 04/14/23 04/14/23 Range/Units 19:50 19:50 WBC 6.3 (3.8-10.6) k/uL RBC 4.27 (3.80-5.40) m/uL Hgb 13.5 (11.4-16.0) gm/dL Hct 39.5 (34.0-46.0) % MCV 92.4 (80.0-100.0) fL MCH 31.7 (25.0-35.0) pg MCHC 34.3 (31.0-37.0) g/dL RDW 12.8 (11.5-15.5) % Plt Count 107 L (150-450) k/uL MPV 9.6 Neutrophils % 56 % Lymphocytes % 34 % Monocytes % 5 % Eosinophils % 1 % Basophils % 1 % Neutrophils # 3.6 (1.3-7.7) k/uL Lymphocytes # 2.1 (1.0-4.8) k/uL Monocytes # 0.3 (0-1.0) k/uL Eosinophils # 0.1 (0-0.7) k/uL Basophils # 0.0 (0-0.2) k/uL Sodium 135 L (137-145) mmol/L Potassium 3.8 (3.5-5.1) mmol/L Chloride 104 (98-107) mmol/L Carbon Dioxide 26 (22-30) mmol/L Anion Gap 5 mmol/L BUN 18 H (7-17) mg/dL Creatinine 0.93 (0.52-1.04) mg/dL Est GFR (CKD-EPI)AfAm 77 (>60 ml/min/1.73 sqM) Est GFR (CKD-EPI)NonAf 67 (>60 ml/min/1.73 sqM) Glucose 105 H (74-99) mg/dL Calcium 9.3 (8.4-10.2) mg/dL Total Bilirubin 0.4 (0.2-1.3) mg/dL AST 27 (14-36) U/L ALT 14 (4-34) U/L Alkaline Phosphatase 97 (38-126) U/L Total Protein 7.4 (6.3-8.2) g/dL Albumin 4.0 (3.5-5.0) g/dL Disposition <Jai Mendez - Last Filed: 04/14/23 20:57> Is patient prescribed a controlled substance at d/c from ED?: No <Brian Laureano - Last Filed: 04/15/23 01:54> Clinical Impression: Fall, Vertigo, Head injury Disposition: HOME SELF-CARE Condition: Good Instructions (If sedation given, give patient instructions): Vertigo (DC), Head Injury (ED), Fall Prevention (ED) Prescriptions: Meclizine [Antivert] 25 mg PO TID PRN #15 tab PRN Reason: Vertigo Referrals: Felecia Curry DO [Primary Care Provider] - 1-2 days
--- NOTE | 2023-04-14 21:08 | CT ---
EXAMINATION TYPE: CT brain shelia marvin con DATE OF EXAM: 04/14/2023 COMPARISON: 07/05/2018 HISTORY: fell down stairs, neck pain CT DLP: 1472.2 mGycm Automated exposure control for dose reduction was used. TECHNIQUE: CT scan of the head and cervical spine are performed without contrast. FINDINGS: CT head: There is a small remote white matter infarct in the left frontal lobe adjacent to the frontal horn le ft lateral ventricle. The ventricles, basal cisterns and sulci over the convexities within normal limits. There is no mass effect or shift of the midline structures. There is no acute intra or extra-axial hemorrhage. The posterior fossa is grossly normal. Intraorbital contents appear normal and symmetric. Visualized paranasal sinuses and mastoid air cells are well aerated. The calvarium is intact. CT cervical spine: The craniovertebral junction relationships and prevertebral soft tissues are normal. There is anterior cervical fusion of C4-C7. There is a large anterior osteophyte of C3 with a chronic fracture line through the. There is no bony encroachment of the cervical canal or of the neural foramina. IMPRESSION: 1. No acute bleed or mass effect intracranially. 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 2. No acute trauma cervical spine. There is anterior metallic fusion from C4 through C7. 3. No significant interval change compared to the prior study.
--- NOTE | 2023-04-14 22:55 | XR ---
EXAM: XR Chest, 1 View CLINICAL HISTORY: ITS.REASON XR Reason: Difficulty breathing TECHNIQUE: Frontal view of the chest. COMPARISON: No relevant prior studies available. FINDINGS: Lungs: Unremarkable. No consolidation. Pleural space: Unremarkable. No pneumothorax. Heart: Cardiomegaly. Mediastinum: Unremarkable. Normal mediastinal contour. Bones/joints: Unremarkable. No acute fracture. Other findings: ACDF. IMPRESSION: No acute findings in the chest.
--- NOTE | 2023-04-14 23:05 | XR ---
EXAM: XR Lumbosacral Spine, 2 or 3 Views CLINICAL HISTORY: ITS.REASON XR Reason: Trauma TECHNIQUE: Frontal and lateral views of the lumbar spine and sacrum. COMPARISON: No relevant prior studies available. FINDINGS: Vertebrae: Multilevel lumbar spondylosis and degenerative disc disease. Osseous demineralization. No acute fracture. Normal alignment. Sacrum/coccyx: Unremarkable as visualized. No acute fracture. Disc spaces: Intervertebral disc spacer at L5-S1. Soft tissues: Unremarkable. Vasculature: Posterior bone grafting material. IMPRESSION: No lumbar spine fracture.
--- NOTE | 2023-04-14 23:13 | XR ---
EXAM: XR Pelvis, 1 or 2 Views CLINICAL HISTORY: ITS.REASON XR Reason: Trauma TECHNIQUE: Frontal view of the pelvis. COMPARISON: No relevant prior studies available. FINDINGS: Bones/joints: LEFT hip arthroplasty. Disc spacer at L5-S1. No dislocation. No pelvic bone fracture. Osseous demineralization. Lumbar spondylosis. Soft tissues: Unremarkable. IMPRESSION: No acute findings in the pelvis.
[2023-04-15] MEDS ORDERED: SODIUM CHLORIDE 0.9% 500 ML 500 ML IV STA (00:18)
[2023-04-15] MEDS ORDERED: MECLIZINE 12.5 MG TAB PO STA (00:21)
[2023-04-15] MEDS: HYDROcodone/APAP 5-325MG 1 EACH TAB PO STA ×2 (00:40→00:44)
[2023-04-15] MEDS ORDERED: traMADol 50 MG TAB PO STA (00:56)
[2023-04-15 01:43] VITALS: BP 139/100; PULSE 67; RESP 18
== END 2023-04-15 02:12 | disposition home or self-care (01) ==
LOC: EC 19:09
DX: S09.90XA Unspecified injury of head, initial encounter (principal); R42 Dizziness and giddiness; I10 Essential (primary) hypertension; K21.9 Gastro-esophageal reflux disease without esophagitis; F17.200 Nicotine dependence, unspecified, uncomplicated; Z79.899 Other long term (current) drug therapy; Z88.5 Allergy status to narcotic agent; Z88.8 Allergy status to other drugs, medicaments and biological substances; W10.9XXA Fall (on) (from) unspecified stairs and steps, initial encounter
CPT/HCPCS: 36415; 70450; 71045; 72100; 72125; 72170; 80053; 85025; 99285

== ENCOUNTER 2024-06-16 08:54 | Day surgery (SDC) | payer OTHER ==
[2024-06-14 14:23] VITALS: BMI 29.7
[2024-06-16 09:32] VITALS: TEMP 97.6
[2024-06-16] MEDS: LACTATED RINGERS 1,000 ML IV SCH (09:38)
[2024-06-16] MEDS: IV FLUID CONTINUATION 1,000 ML IV ONE (09:38)
[2024-06-16] MEDS: MIDAZOLAM 2 MG/2 ML VIAL IV ONE (09:47)
[2024-06-16] MEDS ORDERED: LIDOCAINE 1% INJ 10MG/ML (20 ML MDV) ONE (09:52)
[2024-06-16] MEDS ORDERED: PROPOFOL 10 MG/ML 20 ML VIAL IV ONE (09:52)
--- NOTE | 2024-06-16 10:05 | P.OP ---
Date of Procedure: 06/16/24 Preoperative Diagnosis: Gerd Postoperative Diagnosis: Hiatal hernia Esophagitis Mild antral gastritis Procedure(s) Performed: EGD Anesthesia: MAC Surgeon: Rah Lowery Pathology: other (Antrum, esophagus) Condition: stable Disposition: PACU Description of Procedure: The patient is placed on the endoscopy table in the lateral position. She received IV sedation. The Gastroflux oropharynx passed in the esophagus and the stomach. Scope was through the pylorus. The first and second portion of the duodenum appeared normal. Scope was brought back to the antrum this appeared minimal Flaim. A biopsy performed. The scope was then retroflexed Estelle stomach. Normal. The patient had a moderate recurrent hiatal hernia. The GE junction was at 38 cm. The distal esophagus. Flaim. The supplies. The proximal esophagus appeared normal. Scope withdrawn for the patient.
[2024-06-16 10:20] VITALS: BP 122/65; PULSE 76; RESP 18
== END 2024-06-16 10:43 | disposition home or self-care (01) ==
LOC: ORWHC2ENDO 08:54
PROVIDERS: ATTEND Surgery
DX: K29.50 Unspecified chronic gastritis without bleeding (principal); K21.00 Gastro-esophageal reflux disease with esophagitis, without bleeding; K44.9 Diaphragmatic hernia without obstruction or gangrene; I25.10 Atherosclerotic heart disease of native coronary artery without angina pectoris; I10 Essential (primary) hypertension; E78.5 Hyperlipidemia, unspecified; E07.9 Disorder of thyroid, unspecified; M06.9 Rheumatoid arthritis, unspecified; G43.909 Migraine, unspecified, not intractable, without status migrainosus; K21.9 Gastro-esophageal reflux disease without esophagitis; K74.60 Unspecified cirrhosis of liver; Z79.899 Other long term (current) drug therapy; Z79.890 Hormone replacement therapy; Z88.5 Allergy status to narcotic agent; Z88.8 Allergy status to other drugs, medicaments and biological substances
CPT/HCPCS: 88305; 43239; J2250; J2003; J2704

== ENCOUNTER 2024-08-11 09:52 | Observation (INO) | payer OTHER ==
--- NOTE | 2024-08-11 10:57 | XR ---
EXAMINATION TYPE: XR chest 2V DATE OF EXAM: 08/11/2024 10:38 AM COMPARISON: Chest radiographs from 04/14/2023. CLINICAL INDICATION: Female, 64 years old with history of Chest Pain; [facility] TECHNIQUE: XR chest 2V Frontal and lateral views of the chest. FINDINGS: Lungs/Pleura: There is no evidence of pleural effusion, focal consolidation, or pneumothorax. Pulmonary vascularity: Unremarkable. Heart/mediastinum: Cardiomediastinal silhouette is unremarkable. Musculoskeletal: No acute osseous pathology. There is fixation hardware in the lower cervical spine. Other findings: None IMPRESSION: No acute cardiopulmonary disease/process. [facility], , 08/11/2024 10:54 AM
[2024-08-11] MEDS: traMADol 50 MG TAB PO STA (11:09)
[2024-08-11] MEDS: ASPIRIN 81 MG PO STA (11:10)
[2024-08-11] MEDS: LORazepam 1 MG TAB PO STA (11:10)
[2024-08-11 11:19] LABS: Basophils # (A) 0.03 10*3/uL (0.00-0.10); Basophils % (A) 0.4 %; Eosinophils % (A) 1.4 %; HCT 39.9 % (37.2-46.3); Immature Platelet Fraction 3.8 % (1.1-6.1); Lymphocytes # (A) 1.51 10*3/uL (0.90-5.00); Lymphocytes % (A) 20.8 %; MCH 30.9 pg (27.0-32.0); MCHC 35.1 g/dL (32.0-37.0); MCV 88.1 fL (80.0-97.0); Mean Platelet Volume 11.5 fL (9.5-12.2); Monocytes # (A) 0.44 10*3/uL (0.20-1.00); Monocytes % (A) 6.1 %; Neutrophils # (A) 5.17 10*3/uL (1.80-7.70); Platelet Count 126 10*3/uL (140-440); RBC 4.53 10*6/uL (4.10-5.20); RDW 13.2 % (11.5-14.5); WBC 7.27 10*3/uL (4.50-10.00)
[2024-08-11 11:34] LABS: ALT 14 U/L (4-34); African American GFR (CKD) >90 (>60 ml/min/1.73 sqM); Albumin 4.2 g/dL (3.5-5.0); Anion Gap 8 mmol/L; Blood Urea Nitrogen 14 mg/dL (7-17); Calcium 9.6 mg/dL (8.4-10.2); Carbon Dioxide 25 mmol/L (22-30); Chloride 107 mmol/L (98-107); Glucose 114 mg/dL (74-99); Lipase 99 U/L (23-300); Non-African American GFR(CKD) >90 (>60 ml/min/1.73 sqM); Sodium 140 mmol/L (137-145); Total Bilirubin 0.6 mg/dL (0.2-1.3)
[2024-08-11] MEDS: SODIUM CHLORIDE 0.9% 1,000 ML IV STA (11:34)
[2024-08-11 12:08] LABS: AST 27 U/L (14-36); Alkaline Phosphatase 80 U/L (38-126); Potassium 4.3 mmol/L (3.5-5.1)
[2024-08-11] MEDS ORDERED: NALOXONE 0.4 MG/ML 1 ML VIAL IV PRN (13:12)
[2024-08-11] MEDS ORDERED: traMADol 50 MG TAB PO PRN (13:12)
[2024-08-11 13:14] LABS: Partial Thromboplastin Time 22.5 sec (22.0-30.0); Prothrombin Time 10.7 sec (10.0-12.5)
--- NOTE | 2024-08-11 13:15 | ED ---
General Adult HPI - General Chief complaint: Chest Pain Stated complaint: chest pain, HOWIE Time Seen by Provider: 08/11/24 10:10 Source: patient, RN notes reviewed, old records reviewed Mode of arrival: ambulatory Limitations: no limitations - History of Present Illness Initial comments: Patient is a 64-year-old female presents emergency department complaining of chest pain. Has a history of hypertension, hyperlipidemia, GERD, rheumatoid art hritis. Denies any recent long distance travel. Denies any lower extremity edema. Patient denies any history of CAD. States she does have a family history of CAD. States pain has been on and off for a few days, but worse today. States worse with exertion. Describes it as tightness sensation. Radiates around her left ribs. Denies any back pain to me. Denies any shortness of breath. Denies any worsening pain with palpation or movements. Presents for further evaluation at this time. Denies any nausea or vomiting or diaphoresis. - Related Data Home Medications Medication Instructions Recorded Confirmed Levothyroxine Sodium [Synthroid] 75 mcg PO DAILY 07/17/15 08/11/24 traMADol HCl [Ultram] 100 mg PO QID 07/17/15 08/11/24 Amitriptyline HCl [Elavil] 10 mg PO HS 04/14/23 08/11/24 Meloxicam [Mobic] 7.5 mg PO BID 04/14/23 08/11/24 Upadacitinib [Rinvoq] 15 mg PO DAILY 04/14/23 08/11/24 lisinopriL [Prinivil] 10 mg PO DAILY 06/14/24 08/11/24 Baclofen [Lioresal] 20 mg PO HS 08/11/24 08/11/24 Omeprazole 40 mg PO DAILY PRN 08/11/24 08/11/24 methylPREDNISolone [Medrol Dose See Taper PO DIRECTED 08/11/24 08/11/24 Pack] Allergies Allergy/AdvReac Type Severity Reaction Status Date / Time adhesive tape Allergy blisters Verified 08/11/24 11:22 codeine Allergy hives, SOB Verified 08/11/24 11:22 hydrocodone [From [place]] Allergy Rash/Hives Verified 08/11/24 11:22 Review of Systems ROS Statement: Those systems with pertinent positive or pertinent negative responses have been documented in the HPI. Review of Systems: CONST: Denies fever EYES: Denies blurry vision ENT: Denies nasal congestion C/V: Endorses left-sided chest discomfort. RESP: Denies shortness of breath GI: Denies abdominal pain : Denies dysuria SKIN: Denies rash. MSK: Denies joint pain. NEURO: Denies headache ROS Other: All systems not noted in ROS Statement are negative. Past Medical History Past Medical History: GERD/Reflux, Hyperlipidemia, Hypertension, Myocardial In farction ([place]), Rheumatoid Arthritis ([place]), Thyroid Disorder Additional Past Medical History / Comment(s): Hx migraines, none in 6 yrs. "Carrier of Hepatitis C". GERD resolved, "now I have no stomach acid". "Hx Covid with severe dehydration and almost shut kidneys down, back to normal now". Last Myocardial Infarction Date:: 2022 History of Any Multi-Drug Resistant Organisms: None Reported Past Surgical History: Back Surgery, Breast Surgery, Cholecystectomy, Joint Replacement, Orthopedic Surgery, Tonsillectomy Additional Past Surgical History / Comment(s): L5-S1 fusion, cervical fusion, tram-flap surgery, left knee arthroscopy, EGD, COLONOSCOPY, left carpal tunnel surgery, left elbow surgery, hiatal hernia repair, left hip replacement. Past Anesthesia/Blood Transfusion Reactions: No Reported Reaction Additional Past Anesthesia/Blood Transfusion Reaction / Comment(s): Woke up angry after long surgery X1. Past Psychological History: No Psychological Hx Reported Smoking Status: Former smoker - Past Family History Mother Family Medical History: Cancer Additional Family Medical History / Comment(s): Leukemia. Daughter(s) Family Medical History: Cancer, Seizure Disorder Additional Family Medical History / Comment(s): Breast cancer. General Exam - General Exam Comments Initial Comments: General: Appears in no acute distress. HEAD: Normal with no signs of head trauma. EYES: EOMI ENT: Hearing grossly intact, normal oropharynx. RESPIRATORY: Clear breath sounds bilaterally. No wheezes, rales, or rhonchi. C/V: Regular rate and rhythm. S1 and S2 auscultated, no edema, peripheral pulses 2+ and intact throughout. Chest pain not reproducible on palpation. ABD: Abd is soft, nontender, nondistended EXT: No obvious deformity. SKIN: No rashes or lesions observed on exposed skin. NEURO: Alert and oriented x 4. Limitations: no limitations Course Vital Signs 08/11/24 08/11/24 09:53 10:07 Temperature 98.1 F Pulse Rate 73 Pulse Rate [ 73 Change Control Specialist ] Respiratory 20 Rate Blood Pressure 177/84 O2 Sat by Pulse 99 Oximetry Medical Decision Making - Medical Decision Making Was pt. sent in by a medical professional or institution (, PA, ELEVATOR EXAMINER, urgent care, hospital, or care home...) When possible be specific @ -No Did you speak to anyone other than the patient for history (EMS, parent, family, police, friend...)? What history was obtained from this source @ -No Did you review nursing and triage notes (agree or disagree)? Why? @ -I reviewed and agree with nursing and triage notes Were old charts reviewed (outside hosp., previous admission, EMS record, old EKG, old radiological studies, urgent care reports/EKG's, care home records)? Report findings @ -Reviewed old chart confirming patient's past medical history. Differential Diagnosis (chest pain, altered mental status, abdominal pain women, abdominal pain men, vaginal bleeding, weakness, fever, dyspnea, syncope, headache, dizziness, GI bleed, back pain, seizure, CVA, palpatations, mental health, musculoskeletal)? @ -Differential Chest Pain: Stable Angina, Unstable Angina, STEMI, NSTEMI Aortic Dissection, Pneumothorax, Musculoskeletal, Esophageal Spasm GERD, Cholecystitis, Pancreatitis, Zoster, this is not meant to be an all-inclusive list. EKG interpreted by me (3pts min.). @ -As above X-rays interpreted by me (1pt min.). @ -Chest x-ray reveals no obvious acute cardiopulmonary process CT interpreted by me (1pt min.). @ -None done U/S interpreted by me (1pt. min.). @ -None done What testing was considered but not performed or refused? (CT, X-rays, U/S, labs)? Why? @ -None What meds were considered but not given or refused? Why? @ -None Did you discuss the management of the patient with other professionals (professionals i.e. , JAMMIE, ELEVATOR EXAMINER, lab, RT, psych nurse, social economist, credit reference clerk, teacher, chief innovation officer, watch case polisher)? Give summary @ -Discussed management with the admitting provider, Dr. Vazquez who accepted the admission. Was smoking cessation discussed for >3mins.? @ -No Was critical care preformed (if so, how long)? @ -No Were there social determinants of health that impacted care today? How? (Homelessness, low income, unemployed, alcoholism, drug addiction, transportation, low edu. Level, literacy, decrease access to med. care, half-way, rehab)? @ -No Was there de-escalation of care discussed even if they declined (Discuss DNR or withdrawal of care, Hospice)? DNR status @ -No What co-morbidities impacted this encounter? (DM, HTN, Smoking, COPD, CAD, Cancer, CVA, ARF, Chemo, Hep., AIDS, mental health diagnosis, sleep apnea, morbid obesity)? @ -Hypertension, hyperlipidemia Was patient admitted / discharged? Hospital course, mention meds given and route, prescriptions, significant lab abnormalities, going to OR and other pertinent info. @ -Patient presents emergency department complaining of chest pain. Somewhat atypical. Vital signs are within acceptable limits. She was given a dose of her home tramadol which she thinks may help. As well as aspirin and a dose of Ativan. Patient was in agreement this plan. Vital signs within acceptable limits. EKG shows no signs of acute ischemia. Laboratory studies are within except thomas its including undetectable troponin. Chest x-ray unremarkable. On reevaluation, chest pain is resolved. I did discuss with her and he is heart score is borderline at 3-4, patient will be admitted to the hospital for cardiac evaluation. She was in agreement this plan. Cardiology consulted. Echo ordered. I spoke with the admitting provider, Dr. Vazquez who accepted the admission. Undiagnosed new problem with uncertain prognosis? @ -No Drug Therapy requiring intensive monitoring for toxicity (Heparin, Nitro, Insulin, Cardizem)? @ -No Were any procedures done? @ -No Diagnosis/symptom? @ -Chest pain Acute, or Chronic, or Acute on Chronic? @ -Acute Uncomplicated (without systemic symptoms) or Complicated (systemic symptoms)? @ -Complicated Side effects of treatment? @ -No Exacerbation, Progression, or Severe Exacerbation? @ -No Poses a threat to life or bodily function? How? (Chest pain, [place], [place], pneumonia, PE, COPD, DKA, ARF, appy, cholecystitis, CVA, Diverticulitis, Homicidal, Suicidal, threat to staff... and all critical care pts) @ -Potentially, yes - Lab Data Result diagrams: 08/11/24 11:06 08/11/24 11:06 Lab Results 08/11/24 08/11/24 08/11/24 Range/Units 11:06 11:06 11:06 WBC 7.27 (4.50-10.00) 10*3/uL RBC 4.53 (4.10-5.20) 10*6/uL Hgb 14.0 (12.0-15.0) g/dL Hct 39.9 (37.2-46.3) % MCV 88.1 (80.0-97.0) fL MCH 30.9 (27.0-32.0) pg MCHC 35.1 (32.0-37.0) g/dL Plt Count 126 L (140-440) 10*3/uL MPV 11.5 (9.5-12.2) fL Immature Gran % (Auto) 0.3 % Neutrophils % 71.0 % Lymphocytes % 20.8 % Monocytes % 6.1 % Eosinophils % 1.4 % Basophils % 0.4 % Immature Gran # 0.02 (0.00-0.04) 10*3/uL Neutrophils # 5.17 (1.80-7.70) 10*3/uL Lymphocytes # 1.51 (0.90-5.00) 10*3/uL Monocytes # 0.44 (0.20-1.00) 10*3/uL Eosinophils # 0.10 (0.04-0.35) 10*3/uL Basophils # 0.03 (0.00-0.10) 10*3/uL Immature Plt Fraction 3.8 (1.1-6.1) % PT (10.0-12.5) sec INR (<1.2) APTT (22.0-30.0) sec Sodium 140 (137-145) mmol/L Potassium 4.3 (3.5-5.1) mmol/L Chloride 107 (98-107) mmol/L Carbon Dioxide 25 (22-30) mmol/L Anion Gap 8 mmol/L BUN 14 (7-17) mg/dL Creatinine 0.65 (0.52-1.04) mg/dL Est GFR (CKD-EPI)AfAm >90 (>60 ml/min/1.73 sqM) Est GFR (CKD-EPI)NonAf >90 (>60 ml/min/1.73 sqM) Glucose 114 H (74-99) mg/dL Calcium 9.6 (8.4-10.2) mg/dL Magnesium 2.0 (1.6-2.3) mg/dL Total Bilirubin 0.6 (0.2-1.3) mg/dL AST 27 (14-36) U/L ALT 14 (4-34) U/L Alkaline Phosphatase 80 (38-126) U/L Troponin I <0.012 (0.000-0.034) ng/mL Total Protein 8.0 (6.3-8.2) g/dL Albumin 4.2 (3.5-5.0) g/dL Lipase 99 (23-300) U/L / Range/Units 12:21 WBC (4.50-10.00) 10*3/uL RBC (4.10-5.20) 10*6/uL Hgb (12.0-15.0) g/dL Hct (37.2-46.3) % MCV (80.0-97.0) fL MCH (27.0-32.0) pg MCHC (32.0-37.0) g/dL Plt Count (140-440) 10*3/uL MPV (9.5-12.2) fL Immature Gran % (Auto) % Neutrophils % % Lymphocytes % % Monocytes % % Eosinophils % % Basophils % % Immature Gran # (0.00-0.04) 10*3/uL Neutrophils # (1.80-7.70) 10*3/uL Lymphocytes # (0.90-5.00) 10*3/uL Monocytes # (0.20-1.00) 10*3/uL Eosinophils # (0.04-0.35) 10*3/uL Basophils # (0.00-0.10) 10*3/uL Immature Plt Fraction (1.1-6.1) % PT 10.7 (10.0-12.5) sec INR 1.0 (<1.2) APTT 22.5 (22.0-30.0) sec Sodium (137-145) mmol/L Potassium (3.5-5.1) mmol/L Chloride (98-107) mmol/L Carbon Dioxide (22-30) mmol/L Anion Gap mmol/L BUN (7-17) mg/dL Creatinine (0.52-1.04) mg/dL Est GFR (CKD-EPI)AfAm (>60 ml/min/1.73 sqM) Est GFR (CKD-EPI)NonAf (>60 ml/min/1.73 sqM) Glucose (74-99) mg/dL Calcium (8.4-10.2) mg/dL Magnesium (1.6-2.3) mg/dL Total Bilirubin (0.2-1.3) mg/dL AST (14-36) U/L ALT (4-34) U/L Alkaline Phosphatase (38-126) U/L Troponin I (0.000-0.034) ng/mL Total Protein (6.3-8.2) g/dL Albumin (3.5-5.0) g/dL Lipase (23-300) U/L - EKG Data -: EKG Interpreted by Me EKG Comments: 12-lead Electrocardiogram Interpretation Note EKG was reviewed and interpreted by myself. 12-lead ECG performed at 1012 is interpreted by me as revealing normal sinus rhythm at a rate of 65 beats per minute. [place] is normal. LA interval is 149 ms, QRS duration is 90 ms, QTc is 4 26 ms. There were no ST or T wave abnormalities to suggest myocardial ischemia or injury. R wave progression across the precordium was satisfactory. By my interpretation this EKG is non-diagnostic for acute ischemia. Disposition Clinical Impression: Chest pain Disposition: ADMITTED IP TO THIS HOSP Condition: Stable Time of Disposition: 13:15
[2024-08-11] MEDS: PANTOPRAZOLE 40 MG TABLET PO SCH (16:11)
[2024-08-11] MEDS: HEPARIN SODIUM,PORCINE 5,000 UNIT/ML 1 ML VIAL SQ SCH (16:12)
[2024-08-11] MEDS: lisinopriL 10 MG TAB PO SCH (16:12)
[2024-08-11] MEDS: traMADol 50 MG TAB PO SCH (18:03)
--- NOTE | 2024-08-11 19:36 | P.HPIM ---
History of Present Illness H&P Date: 08/11/24 Chief Complaint: Chest pain Patient is a 64-year-old female with known history of hypertension, hyperlipidemia, rheumatoid arthritis, hypothyroidism, hepatitis C, migraine hea daches and GERD and prior history of smoking. Patient presents to ER with complaints of chest pain. Patient states that she started having chest pain radiating to the upper back and felt like tight chest and could not take deep breathe. Patient was also having right arm/shoulder pain. Patient had symptoms started last midnight around and again this morning which made her to come to ER. Denied any palpitations. No leg swelling. No fever no chills. No nausea vomiting or diarrhea. No abdominal pain. Patient was prescribed Medrol Dosepak yesterday by her rheumatology doctor and but patient did not pick it up yet. She is also taking Mobic for maintenance plumber pain. Chest x-ray showed no acute cardiopulmonary process. EKG showed sinus rhythm, heart rate 65. On admission blood pressure 177/84 pulse 73 respiration 20 and pulse ox 99% on room air. Laboratory data showed WBC 7.27 hemoglobin 14.0 and platelets 126 sodium 140 potassium 4.3 chloride 107 bicarb is 25 BUN 14 creatinine 0 blood sugar 114 Liver enzymes are not elevated. Troponin x 3 negative. Review of Systems Constitutional: Patient denies any fever or chills . No generalized weakness or weight loss. Abdomen: Patient denied nausea vomiting and diarrhea and abdominal pain. Cardiovascular: Patient did have chest pain and tightness with difficulty breathing. No palpitations. Respiratory: patient denied any cough or sputum production. No shortness of breath Neurologic: Patient denied any numbness or tingling. no headache. Musculoskeletal: Patient denies any complaints of joint swelling or deformity. Skin: Negative Psychiatric: Negative Endocrine: No heat or cold intolerance. No recent weight gain. Genitourinary: No dysuria or hematuria. All other 14 point ROS negative except the above Past Medical History Past Medical History: GERD/Reflux, Hyperlipidemia, Hypertension, Myocardial Infarction ([place]), Rheumatoid Arthritis ([place]), Thyroid Disorder Additional Past Medical History / Comment(s): Hx migraines, none in 6 yrs. "Carrier of Hepatitis C". GERD resolved, "now I have no stomach acid". "Hx Covid with severe dehydration and almost shut kidneys down, back to normal now". Last Myocardial Infarction Date:: 2022 History of Any Multi-Drug Resistant Organisms: None Reported Past Surgical History: Back Surgery, Breast Surgery, Cholecystectomy, Joint Replacement, Orthopedic Surgery, Tonsillectomy Additional Past Surgical History / Comment(s): L5-S1 fusion, cervical fusion, tram-flap surgery, left knee arthroscopy, EGD, COLONOSCOPY, left carpal tunnel surgery, left elbow surgery, hiatal hernia repair, left hip replacement. Past Anesthesia/Blood Transfusion Reactions: No Reported Reaction Additional Past Anesthesia/Blood Transfusion Reaction / Comment(s): Woke up angry after long surgery X1. Past Psychological History: No Psychological Hx Reported Smoking Status: Former smoker - Past Family History Mother Family Medical History: Cancer Additional Family Medical History / Comment(s): Leukemia. Daughter(s) Family Medical History: Cancer, Seizure Disorder Additional Family Medical History / Comment(s): Breast cancer. Medications and Allergies Home Medications Medication Instructions Recorded Confirmed Type Levothyroxine Sodium [Synthroid] 75 mcg PO DAILY 07/17/15 08/11/24 History traMADol HCl [Ultram] 100 mg PO QID 07/17/15 08/11/24 History Amitriptyline HCl [Elavil] 10 mg PO HS 04/14/23 08/11/24 History Meloxicam [Mobic] 7.5 mg PO BID 04/14/23 08/11/24 History Upadacitinib [Rinvoq] 15 mg PO DAILY 04/14/23 08/11/24 History lisinopriL [Prinivil] 10 mg PO DAILY 06/14/24 08/11/24 History Baclofen [Lioresal] 20 mg PO HS 08/11/24 08/11/24 History Omeprazole 40 mg PO DAILY PRN 08/11/24 08/11/24 History methylPREDNISolone [Medrol Dose See Taper PO DIRECTED 08/11/24 08/11/24 History Pack] Allergies Allergy/AdvReac Type Severity Reaction Status Date / Time adhesive tape Allergy blisters Verified 08/11/24 11:22 codeine Allergy hives, SOB Verified 08/11/24 11:22 hydrocodone [From [place]] Allergy Rash/Hives Verified 08/11/24 11:22 Physical Exam Vitals: Vital Signs Temp Pulse Pulse Resp BP Pulse Ox 08/11/24 10:07 73 08/11/24 09:53 98.1 F 73 20 177/84 99 Intake and Output 08/10/24 08/11/24 08/11/24 22:59 06:59 14:59 Other: Weight 93.894 kg PHYSICAL EXAMINATION: Patient is lying in the bed comfortably, no acute distress, awake alert and oriented.. HEENT: Normocephalic. Neck is supple. Pupils reactive. Nostrils clear. Oral cavity is moist. Neck reveals no JVD, carotid bruits, or thyromegaly. CHEST EXAMINATION: Trachea is central. Symmetrical expansion. Lung duran clear to auscultation and percussion. CARDIAC: Normal S1, S2 with no gallops. No murmurs ABDOMEN: Soft. Bowel sounds normal. No organomegaly. No abdominal bruits. Extremities: reveal no edema. No clubbing or cyanosis Neurologically awake, alert, oriented x3 with well-coordinated movements. No focal deficits noted Skin: No rash or skin lesions. Psychiatric: Coperative. Nonsuicidal Musculoskeletal: Patient does have rheumatoid arthritic changes of the bilateral hands. Results CBC & Chem 7: 08/11/24 11:06 08/11/24 11:06 Labs: Abnormal Lab Results - Last 24 Hours (Table) 08/11/24 08/11/24 Range/Units 11:06 11:06 Plt Count 126 L (140-440) 10*3/uL Glucose 114 H (74-99) mg/dL Thrombosis Risk Factor Assmnt - DVT/VTE Prophylaxis DVT/VTE Prophylaxis: Pharmacologic Prophylaxis ordered Assessment and Plan Assessment: Atypical chest pain. Ruled out ACS. Rheumatoid arthritis. Patient is on upadacitinib was also started on Medrol Dosepak yesterday by her physician but patient did not take it yet. Hypothyroidism Uncontrolled hypertension GI DVT prophylaxis PPI and heparin subcu Plan: Patient will continued on telemonitoring. Serial EKG and troponin x 3 negative. Medrol Dosepak and meloxicam is on hold. Continue his other home medication including levothyroxine. Continue with PPI and cardiology evaluation. Time with Patient: Greater than 30
[2024-08-11] MEDS: BACLOFEN 10 MG TAB PO SCH (21:53)
[2024-08-12] MEDS: traMADol 50 MG TAB PO SCH (05:15)
[2024-08-12] MEDS: LEVOTHYROXINE 75 MCG TAB PO SCH (06:13)
[2024-08-12 08:06] LABS: Basophils # (A) 0.03 X 10*3/uL (0.00-0.10); Basophils % (A) 0.4 %; Eosinophils # (A) 0.18 X 10*3/uL (0.04-0.35); Eosinophils % (A) 2.7 %; HGB 12.3 g/dL (12.0-15.0); Lymphocytes # (A) 2.77 X 10*3/uL (0.90-5.00); Lymphocytes % (A) 41.2 %; MCH 29.4 pg (27.0-32.0); MCHC 32.4 g/dL (32.0-37.0); MCV 90.9 FL (80.0-97.0); Mean Platelet Volume 12.1 FL (9.5-12.2); Monocytes # (A) 0.56 X 10*3/uL (0.20-1.00); Monocytes % (A) 8.3 %; NRBC Per 100 WBC 0 X 10*3/uL (0.00-0.01); Neutrophils # (A) 3.18 X 10*3/uL (1.80-7.70); Neutrophils % (A) 47.3 %; Platelet Count 134 X 10*3/uL (140-440); RBC 4.18 X 10*6/uL (4.10-5.20); RDW 13.7 % (11.5-14.5); WBC 6.73 X 10*3/uL (4.50-10.00)
[2024-08-12 08:17] LABS: ALT 11 U/L (8-44); AST 19 U/L (13-35); Albumin 3.6 g/dL (3.8-4.9); Albumin/Globulin Ratio 1.24 Ratio (1.60-3.17); Alkaline Phosphatase 75 U/L (41-126); BUN/Creat Ratio 18.86 Ratio (12.00-20.00); Blood Urea Nitrogen 13.2 mg/dL (9.0-27.0); Calcium 8.7 mg/dL (8.7-10.3); Carbon Dioxide 24.3 mmol/L (21.6-31.8); Chloride 107 mmol/L (96-109); Globulin 2.9 g/dL (1.6-3.3); Glucose 93 mg/dL (70-110); Potassium 4.1 mmol/L (3.5-5.5); Sodium 140 mmol/L (135-145); Total Bilirubin 0.3 mg/dL (0.3-1.2); Total Protein 6.5 g/dL (6.2-8.2)
[2024-08-12] MEDS ORDERED: ENOXAPARIN 40 MG/0.4 ML SYRINGE SQ SCH (09:00)
[2024-08-12] MEDS ORDERED: HEPARIN SODIUM 1,000 UN/ML (10ML VL) IV PRN (09:53)
[2024-08-12] MEDS: UPADACITINIB 15 MG PO SCH (09:56)
[2024-08-12 10:41] LABS: Basophils # (A) 0.04 10*3/uL (0.00-0.10); Basophils % (A) 0.6 %; Eosinophils # (A) 0.16 10*3/uL (0.04-0.35); Eosinophils % (A) 2.3 %; HCT 41.4 % (37.2-46.3); HGB 13.5 g/dL (12.0-15.0); Lymphocytes # (A) 2.73 10*3/uL (0.90-5.00); Lymphocytes % (A) 39.6 %; MCH 29.7 pg (27.0-32.0); MCHC 32.6 g/dL (32.0-37.0); Mean Platelet Volume 11.2 fL (9.5-12.2); Monocytes # (A) 0.53 10*3/uL (0.20-1.00); Monocytes % (A) 7.7 %; Neutrophils # (A) 3.43 10*3/uL (1.80-7.70); Neutrophils % (A) 49.7 %; Platelet Count 142 10*3/uL (140-440); RBC 4.55 10*6/uL (4.10-5.20); RDW 13.6 % (11.5-14.5)
[2024-08-12] MEDS: HEPARIN SOD,PORK IN 0.45% NACL 25,000 UNIT in 0.45% NACL 1 250ML.BAG IV SCH (10:42)
[2024-08-12] MEDS: HEPARIN SODIUM 1,000 UN/ML (10ML VL) IV ONE (10:44)
[2024-08-12 11:33] LABS: Partial Thromboplastin Time 23.8 sec (22.0-30.0); Prothrombin Time 10.8 sec (10.0-12.5)
--- NOTE | 2024-08-12 13:05 | CT ---
EXAMINATION TYPE: CT angio chest DATE OF EXAM: 08/12/2024 12:44 PM COMPARISON: Radiograph 08/11/2024 CLINICAL INDICATION: Female, 64 years old with history of R/O PE; chest pain, elevated D-dimer TECHNIQUE/CONTRAST: CTA scan of the thorax is performed with IV Contrast, patient injected with 100 ml mL of Isovue 370, MIP images are created and reviewed these are created on a separate workstation.. CT DLP: 448.40 mGycm, Automated exposure control for dose reduction was used. FINDINGS: Heart is upper limits of normal in size without pericardial effusion. No flattening of the interventr icular septum by refluxing contrast into the hepatic veins. No significant coronary artery calcificat ions are seen. Borderline ectasia ascending aorta 3.6 cm. Minimal atherosclerotic arch calcifications. Bovine config uration to the aortic arch. Satisfactory opacification of the pulmonary arterial system without evidence for pulmonary embolus. Bilateral enlarged hilar and bronchial lymph nodes measuring up to 1.7 cm. Follow-up is recommended. Mild emphysematous change. Prominent groundglass opacities in the bilateral lower lungs. Moderate di ffuse bronchial wall thickening. 6 mm left basilar fissural pulmonary nodule. 5 mm basilar left lower lobe pulmonary nodule, axial image 81. 1.3 cm basilar right middle lobe pulmonary nodule. 9 mm subpleural pulmonary nodule posterior right upper lobe, axial image 25. Moderate circumferential wall thickening distal esophagus with a moderate size hiatal hernia. Some mixon rgical material at the GE junction could reflect previous hiatal hernia repair. Cholecystectomy clips . ACF hardware. Mild degenerative disc disease mid and lower thoracic spine. IMPRESSION: 1. No evidence of pulmonary embolism. 2. COPD with mild emphysema and with prominent bibasilar groundglass. Consider interstitial pneumonit is such as DIP or NSIP in the differential. 3. Bilateral hilar and bronchial adenopathy measuring up to 1.7 cm. While the findings may be chronic , some additional considerations include underlying fungal/mycobacterial infections, sarcoidosis, con nective tissue disorders, and early lymphoma. Consider further pulmonary medicine referral and follow -up. 4. Moderate-sized hiatal hernia. There is some surgical material at the GE junction indicating prior surgery. Clinical correlation recommended. Circumferential wall thickening distal esophagus suggests esophagitis. Direct visualization if clinically indicated. 5. Scattered bilateral pulmonary nodules measuring up to 1.3 cm. A three-month follow-up CT to ensure stability and exclude any suspicious pulmonary nodules. [facility], Workstation: [id number]-[id number] TERESA, 08/12/2024 1:03 PM
[2024-08-12 14:37] VITALS: BP 149/69; PULSE 59; RESP 15; TEMP 98.2
--- NOTE | 2024-08-12 16:08 | CA ---
Transthoracic Echo Report Name: Annelise Leger Age: 64 Gender: F : 1960 Exam Date: 08/12/2024 14:11 Exam Location: [facility] Ht (in): 67 Wt (lb): 207 Ordering Physician: Stephon Garcia MD ([id number]) Attending/Referring Phys: Supervisor Photostat Mike Toussaint RDCS Procedure CPT: Indications: Chest pain, palpitations Cardiac Hx: Technical Quality: Technically difficult study Contrast 1: Definity Total Dose (mL): 2 Contrast 2: Total Dose (mL): MEASUREMENTS (Male / Female) Normal Values 2D ECHO LV Diastolic Diameter PLAX 5.2 cm 4.2 - 5.9 / 3.9 - 5.3 cm LV Systolic Diameter PLAX 3.6 cm IVS Diastolic Thickness 0.9 cm 0.6 - 1.0 / 0.6 - 0.9 cm LVPW Diastolic Thickness 1.0 cm 0.6 - 1.0 / 0.6 - 0.9 cm LV Relative Wall Thickness 0.4 RV Internal Dim ED PLAX 2.5 cm LVOT Diameter 2.0 cm Aortic Root Diameter 2.8 cm LA Systolic Diameter LX 3.6 cm 3.0 - 4.0 / 2.7 - 3.8 cm DOPPLER Mitral E Point Velocity 74.8 cm/s Mitral A Point Velocity 73.1 cm/s Mitral E to A Ratio 1.0 MV Deceleration Time 335.2 ms MV E' Velocity 6.8 cm/s Mitral E to MV E' Ratio 10.9 TR Peak Velocity 181.3 cm/s TR Peak Gradient 13.1 mmHg FINDINGS Left Ventricle Left ventricular ejection fraction is estimated at 60 %. Normal left ventricular systolic function with no obvious regional wall motion abnormalities. Left ventricular cavity size normal. Right Ventricle Right ventricle not well visualized. Right ventricular systolic pressure within normal limits. Right Atrium Right atrium not well visualized. Left Atrium Left atrium not well visualized. Mitral Valve Structurally normal mitral valve. No mitral stenosis. No mitral regurgitation. Aortic Valve Aortic valve not well visualized. No aortic stenosis. No aortic regurgitation. Tricuspid Valve Structurally normal tricuspid valve. No tricuspid stenosis. Trace tricuspid regurgitation. Pulmonic Valve Structurally normal pulmonic valve. No pulmonic stenosis. Trace pulmonic regurgitation. Pericardium No pericardial effusion. Aorta Aortic annulus normal. CONCLUSIONS Left ventricle size and systolic function is normal ejection fraction is increased to 60%. Right ventricle is not well-visualized. Technically somewhat difficult study. Minimal mitral and tricuspid insufficiency no pericardial effusion. Previewed by: Dr. Stephon Garcia MD (Electronically Signed) Final Date: 12 Aug 2024 16:07
--- NOTE | 2024-08-12 18:26 | P.CRDCN ---
History of Present Illness Consult date: 08/12/24 History of present illness: - . HPI: [This is a 64-year-old lady with a history of hypertension hyperlipidemia gastroesophageal reflux disease who came into the hospital complaining of sharp pains in the chest. She also has an element of anxiety she has been having issu es with rheumatoid arthritis with rheumatoid deformities and nodules. She sees a welfare interviewer in the [place] area. Her blood pressure control is fairly decent. She denies any chest pain at the time of my evaluation but she did have some sharp pain earlier on quality of pain seemed very atypical. Her D-dimer was significantly elevated but troponins were normal. I advised a CT angiogram that was performed which revealed no evidence of pulmonary embolism and echo revealed good systolic function without any significant right-sided enlargement. Given this I suggested that she can be discharged and have stress testing workup as an outpatient. I placed her on IV heparin until the CT angiogram results came back. She has an element of anxiety rheumatoid arthritis but atypical chest pain and will benefit from outpatient stress test which I suggested can be done by her PCP]. RELEVANT PAST MEDICAL HISTORY: [Rheumatoid arthritis, hypertension, hyperlipidemia, gastroesophageal reflux disease. Documented CAD]. MEDICATIONS: [Synthroid Elavil meloxicam lisinopril Medrol Dosepak] ALLERGIES: []. REVIEW OF SYSTEMS: [Remarkable for sharp pains in the chest that have resolved completely. No exertional symptoms at all she can do quite a bit of activity as long as she does not use her hands has no chest pain. No palpitations syncope or near syncope]. PHYSICIAL EXAM: [Vitals are stable there is no JVD there is no carotid bruit S1- S2 heard normally short systolic murmur lungs are clear there are rheumatoid deformities of her hands abdomen is soft nontender lower extremities reveal diminished pulses Central nervous system is normal EKG revealed sinus mechanism no acute changes and troponins]. IMPRESSION: 1. [Atypical chest pain advised outpatient stress testing through PCP]. 2. [Benign hypertension]. 3. [Hypercholesterolemia]. 4. [Elevated D-dimer within normal CT angiogram for pulmonary embolism]. 5. []. RECOMMENDATIONS: [Continue current medical therapy optimize BP control increase activity can be discharged but should have outpatient stress testing explained this to the patient. Echo revealed preserved systolic function findings reviewed with the patient]. Past Medical History Past Medical History: GERD/Reflux, Hyperlipidemia, Hypertension, Myocardial Infarction ([place]), Rheumatoid Arthritis ([place]), Thyroid Disorder Additional Past Medical History / Comment(s): Hx migraines, none in 6 yrs. "Carrier of Hepatitis C". GERD resolved, "now I have no stomach acid". "Hx Covid with severe dehydration and almost shut kidneys down, back to normal now". Last Myocardial Infarction Date:: 2022 History of Any Multi-Drug Resistant Organisms: None Reported Past Surgical History: Back Surgery, Breast Surgery, Cholecystectomy, Joint Replacement, Orthopedic Surgery, Tonsillectomy Additional Past Surgical History / Comment(s): L5-S1 fusion, cervical fusion, tram-flap surgery, left knee arthroscopy, EGD, COLONOSCOPY, left carpal tunnel surgery, left elbow surgery, hiatal hernia repair, left hip replacement. Past Anesthesia/Blood Transfusion Reactions: No Reported Reaction Additional Past Anesthesia/Blood Transfusion Reaction / Comment(s): Woke up angry after long surgery X1. Past Psychological History: No Psychological Hx Reported Smoking Status: Former smoker - Past Family History Mother Family Medical History: Cancer Additional Family Medical History / Comment(s): Leukemia. Daughter(s) Family Medical History: Cancer, Seizure Disorder Additional Family Medical History / Comment(s): Breast cancer. Medications and Allergies Home Medications Medication Instructions Recorded Confirmed Type Levothyroxine Sodium [Synthroid] 75 mcg PO DAILY 07/17/15 08/11/24 History traMADol HCl [Ultram] 100 mg PO QID 07/17/15 08/11/24 History Amitriptyline HCl [Elavil] 10 mg PO HS 04/14/23 08/11/24 History Meloxicam [Mobic] 7.5 mg PO BID 04/14/23 08/11/24 History Upadacitinib [Rinvoq] 15 mg PO DAILY 04/14/23 08/11/24 History lisinopriL [Prinivil] 10 mg PO DAILY 06/14/24 08/11/24 History Baclofen [Lioresal] 20 mg PO HS 08/11/24 08/11/24 History Omeprazole 40 mg PO DAILY PRN 08/11/24 08/11/24 History methylPREDNISolone [Medrol Dose See Taper PO DIRECTED 08/11/24 08/11/24 History Pack] Allergies Allergy/AdvReac Type Severity Reaction Status Date / Time adhesive tape Allergy blisters Verified 08/11/24 11:22 codeine Allergy hives, SOB Verified 08/11/24 11:22 hydrocodone [From [place]] Allergy Rash/Hives Verified 08/11/24 11:22 Physical Exam Vitals: Vital Signs Temp Pulse Pulse Resp BP BP Pulse Ox 08/12/24 14:36 98.2 F 59 L 15 149/69 98 08/12/24 14:00 16 08/12/24 09:16 98 08/12/24 08:00 16 08/12/24 07:00 98.0 F 56 L 15 137/73 98 08/12/24 00:57 98.4 F 47 L 16 158/59 100 08/11/24 21:00 16 08/11/24 20:22 98.3 F 79 16 133/64 98 08/11/24 19:16 98.4 F 84 16 141/89 100 Intake and Output 08/12/24 08/12/24 08/12/24 06:59 14:59 22:59 Intake Total 41.667 Balance 41.667 Intake: Intake, IV Titration 41.667 Amount Heparin Sod,Pork in 0.45% 41.667 NaCl 25,000 unit In 0.45 % NaCl 1 250ml.bag @ 10. 65 UNITS/KG/HR 10 mls/hr IV .Q24H [facility] Rx#: [id number] Other: Voiding Method Toilet # Voids 2 3 Results 08/12/24 10:22 08/12/24 05:06 Cardiac Enzymes 08/11/24 08/12/24 Range/Units 17:10 05:06 AST 19 (13-35) U/L Troponin I <0.012 (0.000-0.034) ng/mL Coagulation 08/12/24 Range/Units 10:22 PT 10.8 (10.0-12.5) sec APTT 23.8 (22.0-30.0) sec CBC 08/12/24 08/12/24 Range/Units 05:06 10:22 WBC 6.73 6.90 (4.50-10.00) X 10*3/uL RBC 4.18 4.55 (4.10-5.20) X 10*6/uL Hgb 12.3 13.5 (12.0-15.0) g/dL Hct 38.0 41.4 (37.2-46.3) % Plt Count 134 L 142 (140-440) X 10*3/uL Comprehensive Metabolic Panel 08/12/24 Range/Units 05:06 Sodium 140 (135-145) mmol/L Potassium 4.1 (3.5-5.5) mmol/L Chloride 107 (96-109) mmol/L Carbon Dioxide 24.3 (21.6-31.8) mmol/L BUN 13.2 (9.0-27.0) mg/dL Creatinine 0.7 (0.6-1.5) mg/dL Glucose 93 (70-110) mg/dL Calcium 8.7 (8.7-10.3) mg/dL AST 19 (13-35) U/L ALT 11 (8-44) U/L Alkaline Phosphatase 75 (41-126) U/L Total Protein 6.5 (6.2-8.2) g/dL Albumin 3.6 L (3.8-4.9) g/dL Intake and Output 08/12/24 08/12/24 08/12/24 06:59 14:59 22:59 Intake Total 41.667 Balance 41.667 Intake: Intake, IV Titration 41.667 Amount Heparin Sod,Pork in 0.45% 41.667 NaCl 25,000 unit In 0.45 % NaCl 1 250ml.bag @ 10. 65 UNITS/KG/HR 10 mls/hr IV .Q24H [facility] Rx#: [id number] Other: Voiding Method Toilet # Voids 2 3 08/12/24 10:22 08/12/24 05:06
--- NOTE | 2024-08-18 23:09 | P.DS ---
Providers Date of admission: 08/11/24 13:14 Expected date of discharge: 08/12/24 Attending physician: Milton Bills Consults: 08/11/24 13:12 Consult Physician Routine Consulting Provider: [facility] Consult Reason/Comments: chest pain Do you want consulting provider notified?: Yes Primary care physician: Felecia Curry Hospital Course: Final diagnosis Atypical chest pain. Ruled out ACS. Rheumatoid arthritis. Patient is on upadacitinib was also started on Medrol Dosepak yesterday by her physician but patient did not take it yet. Hypothyroidism Uncontrolled hypertension GI DVT prophylaxis PPI and heparin subcu Obesity with a BMI of 32.4 Full code Discharge disposition Patient is being discharged in a stable condition with guarded prognosis to home. Patient will follow-up with Dr. Curry in the outpatient setting upon discharge. Patient is to continue with medications and outpatient follow-up with cardiology as scheduled. Plan is for outpatient stress testing. Total time taken is greater than 35 minutes. Hospital course This is a 64-year-old female who was recently admitted chest pain, ruled out ACS with cardiology following closely. Patient underwent 2D echo and has been instructed to arrange an outpatient stress test through primary care provider. Patient has been cleared by cardiology and will be discharged home today. Please refer to cardiology notes for further HPI. Currently no reports of chest pain, shortness of breath, or palpitations. Patient is afebrile. No reports of nausea or vomiting and patient is tolerating diet. Patient will be discharged home today. Guarded prognosis Physical exam: Gen: This is a 64-year-old female who is awake, alert and oriented x 3, well- developed, elderly appearing, obese HEENT: Head is atraumatic, normocephalic. Pupils equal, round. Sclerae is anicteric. NECK: Supple. No JVD. No lymphadenopathy. No thyromegaly. LUNGS: Diminished breath sounds bilaterally otherwise clear to auscultation. No wheezes or rhonchi. No intercostal retractions. HEART: S1, S2 are muffled ABDOMEN: Soft. Obese bowel sounds are present. No masses. No tenderness. EXTREMITIES: No pedal edema. No calf tenderness. NEUROLOGICAL: Patient is awake, alert and oriented x3. Cranial nerves 2 through 12 are grossly intact. Please refer to medication reconciliation sheet for a list of medications. The impression and plan of care has been dictated by Katherin Zarina, Nurse Practitioner as directed. Dr. George MD I have performed a history and examination and MDM of this patient, discussed the same with the dictator, and agree with the dictator's assessment and plan as written ,documented as a scribe. Based on total visit time, I have performed more than 50% of the visit. Patient Condition at Discharge: Stable Plan - Discharge Summary Discharge Rx Participant: No New Discharge Prescriptions: Continue traMADol HCl [Ultram] 100 mg PO QID Levothyroxine Sodium [Synthroid] 75 mcg PO DAILY Upadacitinib [Rinvoq] 15 mg PO DAILY Meloxicam [Mobic] 7.5 mg PO BID Amitriptyline HCl [Elavil] 10 mg PO HS lisinopriL [Prinivil] 10 mg PO DAILY Omeprazole 40 mg PO DAILY PRN PRN Reason: Gi Upset Baclofen [Lioresal] 20 mg PO HS methylPREDNISolone [Medrol Dose Pack] See Taper PO DIRECTED Discharge Medication List Levothyroxine Sodium [Synthroid] 75 mcg PO DAILY 07/17/15 [History] traMADol HCl [Ultram] 100 mg PO QID 07/17/15 [History] Amitriptyline HCl [Elavil] 10 mg PO HS 04/14/23 [History] Meloxicam [Mobic] 7.5 mg PO BID 04/14/23 [History] Upadacitinib [Rinvoq] 15 mg PO DAILY 04/14/23 [History] lisinopriL [Prinivil] 10 mg PO DAILY 06/14/24 [History] Baclofen [Lioresal] 20 mg PO HS 08/11/24 [History] Omeprazole 40 mg PO DAILY PRN 08/11/24 [History] methylPREDNISolone [Medrol Dose Pack] See Taper PO DIRECTED 08/11/24 [History] Follow up Appointment(s)/Referral(s): Felecia Curry DO [Primary Care Provider] - 1-2 days Clayton Barron MD [STAFF PHYSICIAN] - 1 Week Prabhu Amin MD [STAFF PHYSICIAN] - 2 Weeks Patient Instructions/Handouts: Chest Pain (DC), Heart Palpitations (DC) Activity/Diet/Wound Care/Special Instructions: Activity limited until follow-up Follow-up with primary care provider on discharge Follow-up with pulmonary outpatient regarding multiple pulmonary nodules noted on CT imaging requiring follow-up in 3 months Follow-up with cardiology outpatient Continue taking medications as prescribed Discharge Disposition: HOME SELF-CARE
== END 2024-08-12 16:43 | disposition home or self-care (01) ==
LOC: EC 09:52 → 6NMEDSUR 13:14
PROVIDERS: ADMIT Hospitalist; ATTEND Hospitalist
DX: R07.89 Other chest pain (principal); I10 Essential (primary) hypertension; K21.9 Gastro-esophageal reflux disease without esophagitis; E78.00 Pure hypercholesterolemia, unspecified; R79.89 Other specified abnormal findings of blood chemistry; E03.9 Hypothyroidism, unspecified; M06.9 Rheumatoid arthritis, unspecified; I25.2 Old myocardial infarction; Z86.16 Personal history of COVID-19; Z87.891 Personal history of nicotine dependence; Z79.1 Long term (current) use of non-steroidal anti-inflammatories (NSAID); Z79.890 Hormone replacement therapy; Z79.899 Other long term (current) drug therapy; Z88.5 Allergy status to narcotic agent; Z82.49 Family history of ischemic heart disease and other diseases of the circulatory system
CPT/HCPCS: 96365; 96366; 96372 ×2; 99285; 36415; 94760; 93005; 85379; 80053 ×2; 83690; 83735; 84484; 85025 ×2; 85610 ×2; 85730 ×2; 71046; 71275; G0378 ×2; C8929; J1644 ×4; Q9967; 93306

== ENCOUNTER → 2024-08-15 | Outpatient (CLI) | payer OTHER ==
--- NOTE | 2024-08-15 08:22 | MR ---
EXAMINATION TYPE: MR brain wo/w con DATE OF EXAM: 08/15/2024 COMPARISON: Prior CT brain April 14, 2023. Prior MRI brain August 16, 2019 HISTORY: Abnormal MRI TECHNIQUE: Multiplanar, multisequence images of the brain and brainstem is performed without and with IV contras t, utilizing 8 mL intravenous Gadobutrol . FINDINGS: Diffusion weighted images demonstrate no evidence of a recent infarct or other diffusion ab normality. There is no worrisome extra-axial fluid collection. Mild ventricular and sulcal prominence greatest o dionne bilateral frontal lobes is redemonstrated. Scattered foci of T2 hyperintensity are noted througho ut the white matter bilaterally. I identified roughly 15-20 scattered lesions with largest lesion elizabeth suring 1.9 cm long axis level of the left frontal lobe jim radiata axial image 17. T2 Star weighte d images show no suspicious intraparenchymal blood product. Midline structures redemonstrate normal morphology. The craniocervical junction remains within katie l limits. Post contrast images demonstrate no abnormal enhancement. The dural venous sinuses appear patent. Artifact distortion at level of the globes is noted involving paranasal sinuses which are pre dominantly clear. There is patchy opacification right mastoid air cells redemonstrated. Retained flui d suspected. IMPRESSION: Mild diffuse bilateral frontal lobe atrophy with [id number] nonspecific white matte r changes somewhat atypical for product of chronic small vessel ischemic change. No suspicious enhanc ement noted. No significant change from most recent prior MRI 2019. [facility], , 08/15/2024 8:20 AM
== END | disposition home or self-care (01) ==
LOC: RADMRIMAIN 06:15
PROVIDERS: ATTEND Family Medicine
DX: G31.9 Degenerative disease of nervous system, unspecified (principal); R90.82 White matter disease, unspecified; R90.89 Other abnormal findings on diagnostic imaging of central nervous system
CPT/HCPCS: 70553; A9585

== ENCOUNTER 2024-09-10 11:01 | Emergency (ER) | payer OTHER ==
[2024-09-10 11:07] VITALS: TEMP 97.8
--- NOTE | 2024-09-10 11:20 | ED ---
Recheck HPI - General Chief Complaint: Recheck/Abnormal Lab/Rx Stated Complaint: Whole Body Pain Time Seen by Provider: 09/10/24 11:09 Source: patient, RN notes reviewed Mode of arrival: wheelchair Limitations: no limitations - History of Present Illness Initial Comments: 64-year-old female presenting to emergency department for encounter for medication refill. Patient states that she was out of her tramadol and is scheduled for a refill tomorrow. No other acute complaints at this time. - Related Data Home Medications Medication Instructions Recorded Confirmed Levothyroxine Sodium [Synthroid] 75 mcg PO DAILY 07/17/15 08/11/24 traMADol HCl [Ultram] 100 mg PO QID 07/17/15 08/11/24 Amitriptyline HCl [Elavil] 10 mg PO HS 04/14/23 08/11/24 Meloxicam [Mobic] 7.5 mg PO BID 04/14/23 08/11/24 Upadacitinib [Rinvoq] 15 mg PO DAILY 04/14/23 08/11/24 lisinopriL [Prinivil] 10 mg PO DAILY 06/14/24 08/11/24 Baclofen [Lioresal] 20 mg PO HS 08/11/24 08/11/24 Omeprazole 40 mg PO DAILY PRN 08/11/24 08/11/24 methylPREDNISolone [Medrol Dose See Taper PO DIRECTED 08/11/24 08/11/24 Pack] Allergies Allergy/AdvReac Type Severity Reaction Status Date / Time adhesive tape Allergy blisters Verified 09/10/24 11:07 codeine Allergy hives, SOB Verified 09/10/24 11:07 hydrocodone [From [place]] Allergy Rash/Hives Verified 09/10/24 11:07 Review of Systems ROS Statement: Those systems with pertinent positive or pertinent negative responses have been documented in the HPI. ROS Other: All systems not noted in ROS Statement are negative. Past Medical History Past Medical History: GERD/Reflux, Hyperlipidemia, Hypertension, Myocardial Infarction ([place]), Rheumatoid Arthritis (RA), Thyroid Disorder Additional Past Medical History / Comment(s): Hx migraines, none in 6 yrs. "Carrier of Hepatitis C". GERD resolved, "now I have no stomach acid". "Hx Covid with severe dehydration and almost shut kidneys down, back to normal now". Last Myocardial Infarction Date:: 2022 History of Any Multi-Drug Resistant Organisms: None Reported Past Surgical History: Back Surgery, Breast Surgery, Cholecystectomy, Joint Replacement, Orthopedic Surgery, Tonsillectomy Additional Past Surgical History / Comment(s): L5-S1 fusion, cervical fusion, tram-flap surgery, left knee arthroscopy, EGD, COLONOSCOPY, left carpal tunnel surgery, left elbow surgery, hiatal hernia repair, left hip replacement, sarcodosis,early lymphoma Past Anesthesia/Blood Transfusion Reactions: No Reported Reaction Additional Past Anesthesia/Blood Transfusion Reaction / Comment(s): Woke up angry after long surgery X1. Past Psychological History: No Psychological Hx Reported Smoking Status: Former smoker - Past Family History Mother Family Medical History: Cancer Additional Family Medical History / Comment(s): Leukemia. Daughter(s) Family Medical History: Cancer, Seizure Disorder Additional Family Medical History / Comment(s): Breast cancer. General Exam Limitations: no limitations General appearance: alert, in no apparent distress Eye exam: Present: normal appearance, PERRL, EOMI. Absent: scleral icterus, conjunctival injection, periorbital swelling Neck exam: Present: normal inspection. Absent: tenderness, meningismus, lymphadenopathy Respiratory exam: Present: normal lung sounds bilaterally. Absent: respiratory distress, wheezes, rales, rhonchi, stridor Cardiovascular Exam: Present: regular rate, normal rhythm, normal heart sounds. Absent: systolic murmur, diastolic murmur, rubs, gallop, clicks GI/Abdominal exam: Present: soft, normal bowel sounds. Absent: distended, tenderness, guarding, rebound, rigid Extremities exam: Present: normal inspection, full ROM, normal capillary refill. Absent: tenderness, pedal edema, joint swelling, calf tenderness Back exam: Present: normal inspection Skin exam: Present: warm, dry, intact, normal color. Absent: rash Course Vital Signs 09/10/24 09/10/24 11:03 11:50 Temperature 97.8 F Pulse Rate 89 84 Respiratory 17 18 Rate Blood Pressure 143/83 164/85 O2 Sat by Pulse 96 97 Oximetry Medical Decision Making - Medical Decision Making Was pt. sent in by a medical professional or institution (, PA, MATTRESS MAKER, urgent care, hospital, or shelter...) When possible be specific @ -No Did you speak to anyone other than the patient for history (EMS, parent, family, police, friend...)? What history was obtained from this source @ -No Did you review nursing and triage notes (agree or disagree)? Why? @ -I reviewed and agree with nursing and triage notes Were old charts reviewed (outside hosp., previous admission, EMS record, old EKG, old radiological studies, urgent care reports/EKG's, shelter records)? Report findings @ -No old charts were reviewed Differential Diagnosis (chest pain, altered mental status, abdominal pain women, abdominal pain men, vaginal bleeding, weakness, fever, dyspnea, syncope, headache, dizziness, GI bleed, back pain, seizure, CVA, palpatations, mental health, musculoskeletal)? @ -Encounter for medication refill EKG interpreted by me (3pts min.). @ -none X-rays interpreted by me (1pt min.). @ -None CT interpreted by me (1pt min.). @ -None done U/S interpreted by me (1pt. min.). @ -None done What testing was considered but not performed or refused? (CT, X-rays, U/S, labs)? Why? @ -None What meds were considered but not given or refused? Why? @ -None Did you discuss the management of the patient with other professionals (professionals i.e. , PA, MATTRESS MAKER, lab, RT, psych nurse, secondary social studies teacher, manager hi, teacher, district fire management officer, telephonic case manager)? Give summary @ -No Was smoking cessation discussed for >3mins.? @ -No Was critical care preformed (if so, how long)? @ -No Were there social determinants of health that impacted care today? How? (Homelessness, low income, unemployed, alcoholism, drug addiction, transportation, low edu. Level, literacy, decrease access to med. care, [place] [facility], rehab)? @ -No Was there de-escalation of care discussed even if they declined (Discuss DNR or withdrawal of care, Hospice)? DNR status @ -No What co-morbidities impacted this encounter? (DM, HTN, Smoking, COPD, CAD, Cancer, CVA, ARF, Chemo, Hep., AIDS, mental health diagnosis, sleep apnea, morbid obesity)? @ -None Was patient admitted / discharged? Hospital course, mention meds given and route, prescriptions, significant lab abnormalities, going to OR and other pertinent info. @ -discharge. 64-year-old female presenting for medication refill. Patient p rovided with home dose of tramadol and starter pack of tramadol. Stable for discharge. Case discussed with Dr. Martin Undiagnosed new problem with uncertain prognosis? @ -No Drug Therapy requiring intensive monitoring for toxicity (Heparin, Nitro, Insulin, Cardizem)? @ -No Were any procedures done? @ -No Diagnosis/symptom? @ -Encounter for medication refill Acute, or Chronic, or Acute on Chronic? @ -Acute Uncomplicated (without systemic symptoms) or Complicated (systemic symptoms)? @ -Uncomplicated Side effects of treatment? @ -No Exacerbation, Progression, or Severe Exacerbation? @ -No Poses a threat to life or bodily function? How? (Chest pain, [place], [place], pneumonia, PE, COPD, DKA, ARF, appy, cholecystitis, CVA, Diverticulitis, Homicidal, Suicidal, threat to staff... and all critical care pts) @ -No Disposition Clinical Impression: Encounter for medication refill Disposition: HOME SELF-CARE Condition: Stable Instructions (If sedation given, give patient instructions): Tramadol (By mouth) Additional Instructions: Please return to the Emergency Department if symptoms worsen or any other concerns. Is patient prescribed a controlled substance at d/c from ED?: No Referrals: Felecia Curry DO [Primary Care Provider] - 1-2 days Time of Disposition: 11:37
[2024-09-10] MEDS: traMADol 50 MG TAB PO STA (11:47)
[2024-09-10] MEDS: traMADol 50 MG STARTER PACK 3 TAB BTL PO STA (11:48)
[2024-09-10 11:52] VITALS: BP 164/85; PULSE 84; RESP 18
== END 2024-09-10 12:07 | disposition home or self-care (01) ==
LOC: EC 11:01
DX: Z76.0 Encounter for issue of repeat prescription (principal); Z88.5 Allergy status to narcotic agent; Z91.09 Other allergy status, other than to drugs and biological substances; Z87.891 Personal history of nicotine dependence; Z86.16 Personal history of COVID-19
CPT/HCPCS: 99283

== ENCOUNTER → 2024-10-25 | Outpatient (CLI) | payer OTHER ==
[~2024-10-25] MED LIST changes: -ACETAMINOPHEN TAB 500 MG TAB PO PRN; -LACTATED RINGERS 1,000 ML IV SCH; -LIDOCAINE 1% (10MG/ML) FOR IV START INTRADERMA PRN; -MELOXICAM 7.5 MG TAB PO PRN; -MIDAZOLAM 2 MG/2 ML VIAL IV PRN; -Pre Op ABX Message 1 EACH MISC MISCELLANE ONE; +REGADENOSON 0.4 MG/5 ML SYRINGE IV ONE; -ROPIVACAINE/EPI/CLONIDINE/KET 50 ML SYRINGE MISCELLANE PRN; -TRANEXAMIC ACID 1,000 MG in SODIUM CHLORIDE 0.9% 100 ML IVPB PRN
--- NOTE | 2024-10-25 13:07 | NM ---
EXAMINATION TYPE: NM stress lexiscan cardiolite DATE OF EXAM: 10/25/2024 COMPARISON: NONE CLINICAL INDICATION: Female, 64 years old with history of I10 HTN I20.89 OTHER FORMS OF ANGINA PECTOR IS; TECHNIQUE: After the intravenous administration of 9.8 mCi Tc 99m Sestamibi - Cardiolite resting SPE CT images acquired 67 minutes post injection. The patient received 0.4mg Lexiscan, 25.3 mCi Tc 99m Sestamibi - Stress images obtained [address] injection FINDINGS: Review of stress and rest SPECT images demonstrates decreased perfusion along the mid to basal inferi or wall though on stress though there is adjacent GI activity. Additionally, some decreased perfusion on stress at the apex of the heart. Gated analysis shows normal wall motion with an estimated left v entricular ejection fraction of 76 %. TID is calculated at 0.93, within normal limits. IMPRESSION: Areas of reversibility involving the (1) inferior basal wall and (2) apex of the heart are equivocal as wall motion appears normal and these portions augment appropriately. There is also prominent adjac ent GI activity which may be causing artifact. Further EKG and clinical correlation recommended. [facility], , 10/25/2024 1:05 PM
--- NOTE | 2024-10-25 13:09 | CA ---
Lexiscan Nuclear Stress Test Report Name: Annelise Leger Exam Date: 10/25/2024 11:04 Exam Location: [facility] Stress Ht (in): 67 Wt (lb): 207 BSA: 2.05 Ordering Phys: Florentino Jacobs MD Referring Phys: Katherin Rivas PAC Technologist: CHARO Age: 64 Gender: F : 1960 Procedure CPT: Indications: I10 HTN I20.89 OTHER FORMS OF ANGINA PECTORIS ICD-10 Codes: Patient History: HOWIE, HTN, PAST SC, FAMILY HX, CURRENT TOB. Medications: Meds past 24 hrs: Pretest Chest Pain: STRESS TEST Lexiscan Protocol Exercise Duration (min:sec): 01:[address] Depressions (mm): Angina Score: Saucedo Score: Resting HR (bpm): 60 Peak HR (bpm): 78 Resting BP (mmHg): 136 / 66 Peak BP (mmHg): 133 / 62 MPHR: 156 Target HR: 133 % MPHR: 50 METS: 1.0 Total Dose: Peak Dose: Atropine: Double Product: 67420 BP Response: Stress Termination: INFUSION COMPLETE Stress Symptoms: NO SYMPTOMS Stress Summary: ECG ANALYSIS Resting ECG: Sinus rhythm. Normal conduction. No arrhythmias. Normal repolarization. Stress ECG: No ECG changes from baseline with Lexiscan infusion. Ventricular premature contraction. CONCLUSIONS No ECG evidence of ischemia with Lexiscan infusion. Nuclear test results to follow. Dr. Matt Woods MD (Electronically Signed) Final Date: 25 October 2024 13:08
== END | disposition home or self-care (01) ==
LOC: RADNMMAIN 08:34
PROVIDERS: ATTEND Family Medicine
DX: I10 Essential (primary) hypertension (principal); I20.89 Other forms of angina pectoris; I25.2 Old myocardial infarction
CPT/HCPCS: 93017; 78452; A9500